=== PATIENT | female | born 1965 | race Caucasian/White ===

== ENCOUNTER 2018-10-26 19:32 | Inpatient (IN) | payer MEDICAID ==
[~2018-10-26] VITALS: Ht 170.2 cm; Wt 62.1 kg
--- NOTE | 2018-10-26 19:32 | NUR ---
PT MIGUE BLS. TAKEN TO BED 3
[2018-10-26 19:36] VITALS: BP 113/71
--- NOTE | 2018-10-26 19:45 | NUR ---
MIGUE FROM FIELD. PER PD, PT WAS WANDERING THROUGH SOMEONE'S BACKYARD, RESIDENTS CALLED 911. PT WAS LATER FOUND LYING DOWN OUTSIDE OF BUDDHIST. PT NOT VERBALLY RESPONDING TO PD, EMS CALLED. PT ARRIVES AWAKE WITH EYES CLOSED SHUT. PT RESPONDS TO STIMULI. PT AMBULATED TO BED WITH ASSIST. UNCOOPERATIVE. REFUSING TO SPEAK TO STAFF OR ANSWER QUESTIONS. NO MEDICAL HX OBTAINED. NO OBVIOUS SIGNS OF TRAUMA/INJURY NOTED. VSS; PATIENT POSITIONED FOR COMFORT; HOB ELEVATED; BEDRAILS UP X2; BED DOWN. ER MD MADE AWARE OF PT STATUS.
[2018-10-26] MEDS ORDERED: NACL 0.9% 1,000 ML IV ONE (19:50)
--- NOTE | 2018-10-26 20:17 | NUR ---
Dr. Cheema examining patient.
[2018-10-26 20:40] LABS: BASOPHILS % (AUTO) 0.3 % (0.0-2.0); EOSINOPHILS # (AUTO) 0.5 K/uL (0-0.4); EOSINOPHILS % (AUTO) 6.8 % (0.0-4.0); HEMATOCRIT 37.5 % (36-48); HEMOGLOBIN 12.7 g/dL (12.0-16.0); LYMPHOCYTES # (AUTO) 2.8 K/uL (2.5-16.5); LYMPHOCYTES % (AUTO) 36.9 % (20.5-51.1); MEAN CORPUSCULAR HEMOGLOBIN 31 pg (27-31); MEAN CORPUSCULAR HGB CONC 34 g/dL (33-37); MEAN CORPUSCULAR VOLUME 90.8 fL (80-94); MONOCYTES # (AUTO) 0.6 K/uL (0.8-1.0); MONOCYTES % (AUTO) 8.3 % (1.7-9.3); NEUTROPHILS # (AUTO) 3.6 K/uL (1.8-7.7); NEUTROPHILS % (AUTO) 47.7 % (42.2-75.2); PLATELET COUNT (AUTO) 332 K/uL (140-450); RED BLOOD CELL COUNT(AUTO) 4.13 MIL/uL (4.20-5.40); RED CELL DISTRIBUTION WIDTH 12.5 % (11.6-13.7); WHITE BLOOD COUNT (AUTO) 7.5 K/uL (4.8-10.8)
[2018-10-26] MEDS ORDERED: LEVOFLOXACIN 500 MG/D5W PREMIX 100 ML IV ONE (21:00)
[2018-10-26 21:11] LABS: CARBON DIOXIDE 29.5 mmol/L (21-32); CHLORIDE 105 mmol/L (98-107); CREATININE 0.8 mg/dL (0.6-1.3); GFR ARICAN-AMERICAN 98 mL/min (>90); GLUCOSE 96 mg/dL (74-106); POTASSIUM 3.5 mmol/L (3.5-5.1); SODIUM SERUM 143 mmol/L (136-145); UREA NITROGEN, BLOOD 12 mg/dL (7-18)
[2018-10-26 21:17] LABS: ACETAMINOPHEN < 0.5 ug/ml (10-30); ALBUMIN 3.9 g/dL (3.4-5.0); ASPARTATE AMINOTRANSFERASE 12 U/L (15-37); SALICYLATE < 2.8 mg/dL (2.8-20.0); TOTAL BILIRUBIN 0.7 mg/dL (0.0-1.0)
--- NOTE | 2018-10-26 21:20 | NUR ---
REPORT GIVEN TO GERARD VINCENT.
[2018-10-26 22:35] LABS: BARBITURATE, URINE NEG. ng/ml (NEG <=200); BENZODIAZEPINE, URINE NEG. ng/mL (NEG <=200); CANNABINOID, URINE NEG. ng/mL (NEG <=50); COCAINE, URINE NEG. ng/mL (NEG <=300); OPIATE, URINE NEG. ng/mL (NEG <=2000); PHENCYCLIDINE SCREEN,URINE NEG. ng/mL (NEG <=25)
[2018-10-26] MEDS ORDERED: KETOROLAC 30 MG/ML VIAL IVP ONE (22:40)
--- NOTE | 2018-10-26 23:14 | NUR ---
PT TAKEN TO CT
--- NOTE | 2018-10-26 23:33 | NUR ---
PT RETURN FROM CT
--- NOTE | 2018-10-27 00:18 | NUR ---
COVERING PRIMARY RN FOR LUNCH RELIEF. ASSUMED TEMPORARY CARE OF PT.
--- NOTE | 2018-10-27 00:40 | NUR ---
TRANSFER OF CARE BACK TO GERARD VINCENT.
[2018-10-27] MEDS ORDERED: ACETAMINOPHEN 325 MG TAB PO PRN (01:00)
[2018-10-27] MEDS ORDERED: ONDANSETRON 4 MG/2 ML VIAL IM/IVP PRN (01:00)
[2018-10-27] MEDS ORDERED: LORazepam 2 MG/ML VIAL IM/IVP PRN (01:00)
[2018-10-27] MEDS ORDERED: DOCUSATE SODIUM 100 MG GELCAP PO PRN (01:00)
--- NOTE | 2018-10-27 01:00 | NUR ---
Patient will be admitted to care of mandel. Admited to [facility]. Will go to room 121b Belongings list completed. Report to YAYA
--- NOTE | 2018-10-27 01:00 | NUR ---
RECEIVED REPORT FROM COLD WORKING SUPERVISORGERARD VINCENT. NO DISTRESS. NO SOB. ROOM AIR. A/O X0. UNABLE TO ASSESS. DISCUSSED PLAN OF CARE. REINFORCEMENT NEEDED. ABLE TO OPEN EYES. BUT NOT REPLYING TO QUESTIONS. VITALS WNL. R AC 20G. PATENT AND INTACT. SKIN INTACT. INCONTINENT. STANDARD PREC IN PLACE. NOT ABLE TO WALK DUE TO CONDITION. FALL RISK PROTOCOL IN PLACE. BED IN LOWEST POSITION. CALL LIGHT WITHIN REACH. WILL CONTINUE TO MONITOR.
[2018-10-27 01:20] LABS: APPEARANCE,URINE CLOUDY (CLEAR); BILIRUBIN,URINE NEGATIVE (NEGATIVE); BLOOD, URINE NEGATIVE (NEGATIVE); COLOR,URINE YELLOW (YELLOW); LEUKOCYTE ESTERASE ,URINE 3+ (NEGATIVE); NITRITE, URINE POSITIVE (NEGATIVE); PH,URINE >=9.0 (5.0-9.0); UGLUCOSE NEGATIVE (NEGATIVE)
[2018-10-27] MEDS: NACL 0.9% 1,000 ML IV SCH ×3 (02:02→21:45)
--- NOTE | 2018-10-27 02:02 | NUR ---
ATTEMPTED TO COLLECT MRSA SWAB. DID NOT ALLOW ME TO. PT UNCOOPERATIVE. MOVING MY HANDS AWAY BUT NOT SPEAKING. NO SIGNS OF DISTRESS. WILL CONTINUE TO MONITOR AND TRY TO COLLECT LATER.
--- NOTE | 2018-10-27 02:04 | NUR ---
PT KEEPS BENDING ARM. INSTRUCTED PT TO KEEP ARM STRAIGHT. BUT PT KEEPS BENDING ARM. NOT COOPERATING. REINFORCEMENT NEEDED.
[2018-10-27 02:17] LABS: CHOL/HDL RATIO 2.6 (1-4.5); FREE T4 (FREE THYROXINE) 1.11 ng/dL (0.76-1.46); THYROID STIMULATING HORMONE 4.29 uIU/mL (0.34-3.74)
[2018-10-27 03:53] LABS: RBC,URINE 0-5 /HPF (0-5); WBC,URINE TOO MANY TO COUNT /HPF (0-5)
[2018-10-27 03:54] LABS: TRIPLE PHOSPHATE CRYSTAL,UR >100 /HPF (None Seen)
--- NOTE | 2018-10-27 04:00 | NUR ---
PT SLEEPING IN BED. EASILY AROUSABLE. EVEN CHEST RISE. NO SIGNS OF DISTRESS. WILL CONTINUE TO MONITOR.
--- NOTE | 2018-10-27 06:00 | NUR ---
PT SLEEPING. NO SIGNS OF DISTRESS. ON ROOM AIR. WILL CONTINUE TO MONITOR.
--- NOTE | 2018-10-27 07:29 | NUR ---
ENDORSED PT TO RAH ROGER. PT IS IN STABLE CONDITION.
--- NOTE | 2018-10-27 07:30 | NUR ---
RECEIVED BEDSIDE REPORT FROM CARDIAC EXERCISE SPECIALIST NURSE YAYA. PT IS ASLEEP, NO S/S OF ANY ACUTE DISTRESS NOTED. PT HAS AN IV IN HER R AC 20 G CURRENTLY SALINE LOCKED BECAUSE PT'S ARM IS BENT. PT IS REFUSING TO KEEP ARM STRAIGHT. PT ON ROOM AIR, SKIN INTACT. FALL PRECAUTIONS IN PLACE. WILL CONTINUE TO MONITOR.
[2018-10-27 08:00] VITALS: BP 145/70
--- NOTE | 2018-10-27 08:10 | NUR ---
PT WAS NONCOMPLIANT WITH HAVING A CHEST XRAY. PT ALSO DID NOT COMPLY WITH COLLECTION OF NASAL MRSA SWAB. WILL NOTIFY .
--- NOTE | 2018-10-27 08:43 | NUR ---
PATIENT HAS BEEN SCREENED AND CATEGORIZED MODERATE NUTRITION RISK. PATIENT WILL BE SEEN WITHIN 3-5 DAYS OF ADMISSION. 10/29/18BONIFACIO ESQUIVEL RD
[2018-10-27] MEDS: LACTOBACILLUS RHAMNOSUS GG 1 EACH CAP PO SCH ×2 (09:00→21:00)
--- NOTE | 2018-10-27 09:02 | NUR ---
PT'S IV FOUND TO BE OUT OF HER VEIN. WILL ATTEMPT TO INSERT A NEW ONE.
--- NOTE | 2018-10-27 09:58 | NUR ---
PT'S LINENS CHANGED. PT CONTINUES TO SLEEP.
--- NOTE | 2018-10-27 10:15 | NUR ---
NEW IV INSERTED L HAND 22 G.
--- NOTE | 2018-10-27 10:42 | NUR ---
SW attempted to conduct assessment with patient. Patient did not respond to verbal cues. SW spoke to patient's nurse, who stated that patient does not communicate with staff and that patient has no means of identification. SW attempted to receive attention of patient, but patient did not respond. SW will follow up as needed.
--- NOTE | 2018-10-27 11:25 | NUR ---
PT PULLED OUT HER IV. WILL ATTEMPT TO INSERT A NEW IV
[2018-10-27 12:22] LABS: PROTHROMBIN TIME 10.7 secs (10.8-13.4)
[2018-10-27 12:27] LABS: ANION GAP 14.2 (8-16); CREATININE 0.7 mg/dL (0.6-1.3); POTASSIUM 4.2 mmol/L (3.5-5.1)
--- NOTE | 2018-10-27 13:10 | NUR ---
ATTEMPTED TO START A NEW IV, PT BECAME AGGRESSIVE, GRABBING AND PULLING RN'S ARMS. NOTIFIED. DR BOYCE SAYS TO LET PT SLEEP FOR NOW, AND DON'T ATTEMPT TO INSERT AN IV ON HER, IT POSES A SAFETY RISK.
[2018-10-27 16:00] VITALS: BP 151/65
--- NOTE | 2018-10-27 16:00 | NUR ---
PT NOT LETTING RN TO TAKE BP ON THE ARM OR TO CHECK O2 SAT ON A FINGER, GRABBING ONTO EQUIPMENT. CHECKED BP AND O2 ON THE LOWER EXTREMITY. VS ARE STABLE TO BASELINE.
--- NOTE | 2018-10-27 16:29 | NUR ---
PT'S LINENS CHANGED. PT IS NOTED TO BE INCONTINENT. WHENEVER STAFF IS TRYING TO COMMUNICATE WITH THE PT OR ASK HER A QUESTION, THE PT DOES NOT RESPOND THOUGH SHE DOES NOT HEAR THEM. PT IS CALMLY SLEEPING AT BASELINE, HOWEVER, CAN BECOME PHYSICALLY AGGRESSIVE WHEN BEING MOVED, CLEANED, OR DURING VITAL SIGNS.
--- NOTE | 2018-10-27 18:31 | NUR ---
ATTEMPTED TO COLLECT A MRSA NARES SWAB AGAIN, PT NONCOMPLIANT, COVERING HER FACE WITH A BLANKET AND PUSHING RN'S HANDS AWAY.
--- NOTE | 2018-10-27 19:30 | NUR ---
PT ENDORSED TO COOK BOX FILLER IN STABLE CONDITION.
--- NOTE | 2018-10-27 19:31 | NUR ---
RECEIVED BESIDE REPORT FROM RAH ROGER. PT A/O X0. ALOC. NON COMMUNICATIVE. DISCUSSED PLAN OF CARE. REINFORCEMENT NEEDED. ROOM AIR. NO SIGNS OF DISTRESS. SKIN INTACT. NO IV SITE. STD PRECAUTIONS. FALL RISK PROTOCAL IN PLACE. BED IN LOWEST POSITION. CALL LIGHT WITHIN REACH. WILL CONTINUE TO MONITOR.
--- NOTE | 2018-10-27 21:00 | NUR ---
REFUSED SCHEDULED MEDICATIONS. PULLS AWAY. EDUCATED ON RISKS AND BENEFITS. UNCOMMUNICATIVE. REINFORCEMENT NEEDED. WILL CONTINUE TO MONITOR.
--- NOTE | 2018-10-27 22:00 | NUR ---
ATTEMPTED TO GET MRSA SWAB. PT REFUSED. MOVES MY HANDS AWAY. PT REFUSED VITALS. UNCOOPERATIVE. CONTINUES MOVING MY HANDS OUT OF THE WAY AND COVERS HER BODY AND HEAD UNDERNEATH THE BLANKET. DOESN'T RESPOND, UNCOMMUNICATIVE. BUT SHOWS NO SIGNS OF DISTRESS. WILL CONTINUE TO MONITOR.
[2018-10-27] MEDS ORDERED: LEVOFLOXACIN 500 MG/D5W PREMIX 100 ML IV SCH (22:30)
--- NOTE | 2018-10-28 00:06 | NUR ---
PT IS SLEEPING IN BED. THI CARE WAS PERFORMED. LINEN CHANGE. TOLERATED WELL. NO COMPLAINTS. DENIES PAIN. WILL CONTINUE TO MONITOR.
--- NOTE | 2018-10-28 02:46 | NUR ---
SLEEPING IN BED. UNLABORED BREATHING. NO SIGNS OF DISTRESS. CALL LIGHT WITHIN REACH. WILL CONTINUE TO MONITOR.
--- NOTE | 2018-10-28 04:30 | NUR ---
ASSISTED WITH THI CARE AND LINEN CHANGE. WITH ASSIST OF DEPARTMENT STORE SALESPERSON. TOLERATED WELL. NO SIGNS OF DISTRESS. WILL CONTINUE TO MONITOR.
--- NOTE | 2018-10-28 06:46 | NUR ---
WILL ENDORSE PT TO DAYSHIFT RN. PT IN STABLE CONDITION. RESTING IN BED. NO SIGNS OF DISTRESS. UNLABORED BREATHING. NO SOB. DENIES PAIN. BED IN LOWEST POSITION. CALL LIGHT WITHIN REACH.
--- NOTE | 2018-10-28 07:10 | NUR ---
RECEIVED BED SIDE REPORT FROM COMMUNITY EDUCATION SPECIALIST RN. PT SLEEPING, IGNORES WHEN CALLING NAME. REFUSED VITAL SIGNS. PT COVERED BODY WITH BLANKET AND TURNED AWAY. PT APPEARS IN NO RESP DISTRESS ON RA AND IN NO PAIN. PT IS NPO EXCEPT MEDS. CALL LIGHT WITHIN REACH. WILL CONTINUE TO MONITOR
[2018-10-28] MEDS: NACL 0.9% 1,000 ML IV SCH ×2 (07:45→17:21)
--- NOTE | 2018-10-28 08:42 | NUR ---
PT REFUSED AM MEDS. EDUCATED ON THE IMPORTANCE OF TAKING MEDS, PT STILL IGNORING ME. WILL CONTINUE TO MONITOR.
[2018-10-28] MEDS: LACTOBACILLUS RHAMNOSUS GG 1 EACH CAP PO SCH ×3 (08:43→21:43)
[2018-10-28] MEDS: cefTRIAXone 1,000 MG in LIDOCAINE MPF 1% - 5 mL VIAL 2.1 ML IM SCH (08:43)
--- NOTE | 2018-10-28 08:44 | NUR ---
PT ALSO HAS NO IV ACCESS. PT REFUSES TO HAVE IV IN. IV ABX DUE. WILL CONTINUE TO MONITOR
[2018-10-28] MEDS: LORazepam 2 MG/ML VIAL IVP SCH ×2 (13:00→17:00)
--- NOTE | 2018-10-28 18:25 | NUR ---
PT STILL SLEEPING. RR 18, NON-LABORED AND SYMMETRICAL. IN NO DISTRESS, WILL CONTINUE TO MONITOR
--- NOTE | 2018-10-28 18:54 | NUR ---
WILL ENDORSE PT TO SYSTEM SPECIALIST RN. PT STABLE
--- NOTE | 2018-10-28 19:30 | NUR ---
RECEIVED FROM AM RN IN BED WITH WHOLE BODY COVERED WITH BLANKET. PRIED OPEN BLANKET FROM FACE GENTLY AND ASKED HER HOW IS SHE. PT. JUST LOOKED AT ME AND PUT BACK THE BLANKET TO COVER HER FACE AGAIN. PREFERS TO SLEEP AND BE UNDER BLANKET. NONE VERBAL AT THIS TIME. BED ALARM ON.
--- NOTE | 2018-10-28 21:57 | NUR ---
ATTEMPTED TO ADMINISTER HEPARIN SQ BUT SUDDENLY PUSHED MY HAND AWAY . REFUSED MEDICATIONS. GAVE ORANGE JUICE AND SHE ACCEPTED BUT NOT MEDICATIONS. HEPARIN SQ MEDICATION DISCARDED WITNESSED BY CHARGE NURSE.
--- NOTE | 2018-10-29 00:09 | NUR ---
SLEEPING AT THIS TIME. NO RESTLESSNESS. BED ALARM ON.
[2018-10-29 00:50] VITALS: BP 128/73
--- NOTE | 2018-10-29 00:53 | NUR ---
PT. PERSONAL HYGIENE RENDERED. HAD 1 BM AND WET WITH URINE BEDDING . CHANGED AND KEPT CLEAN. PT. REFUSED TO BE HELD IN HER HAND . ABLE TO GET VITAL SIGN ONLY TO RIGHT FOOT ANKLE PART. PT. COMBATIVE WITH CARE.
[2018-10-29] MEDS: NACL 0.9% 1,000 ML IV SCH ×3 (03:45→23:45)
--- NOTE | 2018-10-29 06:15 | NUR ---
SLEPT WELL THIS SHIFT. LAST AM PERSONAL HYGIENE DONE. KEPT CLEAN AND DRY. COMBATIVE TO CARE. PT. REFUSING TO OPEN EYES AT TIMES . NEEDS ANTICIPATED AND MET.
[2018-10-29 06:39] LABS: CREATININE 0.7 mg/dL (0.6-1.3)
[2018-10-29 06:44] LABS: CARBON DIOXIDE 24.3 mmol/L (21-32); POTASSIUM 3.6 mmol/L (3.5-5.1)
[2018-10-29 06:46] LABS: MAGNESIUM 1.8 mg/dL (1.8-2.4); PHOSPHORUS 3.7 mg/dL (2.5-4.9)
[2018-10-29 06:50] LABS: BASOPHILS % (AUTO) 0.4 % (0.0-2.0); EOSINOPHILS # (AUTO) 0.2 K/uL (0-0.4); EOSINOPHILS % (AUTO) 3.3 % (0.0-4.0); HEMATOCRIT 41.6 % (36-48); LYMPHOCYTES # (AUTO) 2.4 K/uL (2.5-16.5); LYMPHOCYTES % (AUTO) 35.7 % (20.5-51.1); MEAN CORPUSCULAR HEMOGLOBIN 31 pg (27-31); MEAN CORPUSCULAR HGB CONC 34 g/dL (33-37); MEAN CORPUSCULAR VOLUME 90.8 fL (80-94); MONOCYTES # (AUTO) 0.6 K/uL (0.8-1.0); MONOCYTES % (AUTO) 8.3 % (1.7-9.3); NEUTROPHILS # (AUTO) 3.5 K/uL (1.8-7.7); NEUTROPHILS % (AUTO) 52.3 % (42.2-75.2); PLATELET COUNT (AUTO) 355 K/uL (140-450); RED BLOOD CELL COUNT(AUTO) 4.59 MIL/uL (4.20-5.40); RED CELL DISTRIBUTION WIDTH 12.5 % (11.6-13.7); WHITE BLOOD COUNT (AUTO) 6.7 K/uL (4.8-10.8)
[2018-10-29 06:52] LABS: ANION GAP 17.3 (8-16)
--- NOTE | 2018-10-29 07:15 | NUR ---
RECEIVED REPORT FROM CONTINUING EDUCATION INSTRUCTOR NURSE. PT SLEEPING. PT APHASIC OR WON'T TALK. SKIN INTACT. NO IV ACCESS. WILL CONTINUE TO MONITOR PT.
[2018-10-29] MEDS: LORazepam 2 MG/ML VIAL IVP SCH (09:00)
[2018-10-29] MEDS: LACTOBACILLUS RHAMNOSUS GG 1 EACH CAP PO SCH ×2 (09:00→21:00)
--- NOTE | 2018-10-29 10:21 | NUR ---
SW attempted to conduct assessment. Patient refused to communicate with SW. SW will follow up.
[2018-10-29] MEDS: cefTRIAXone 1,000 MG in LIDOCAINE MPF 1% - 5 mL VIAL 2.1 ML IM SCH (10:54)
--- NOTE | 2018-10-29 11:02 | NUR ---
ADMINISTERED INJ x3 W/ ASSISTANCE OF 3 OTHER PERSONS. PT WAS COMBATIVE BUT WAS ABLE TO ADMINISTER. NO BLEEDING NOTED. WILL CONTINUE TO MONITOR PT.
[2018-10-29] MEDS ORDERED: LORazepam 2 MG/ML VIAL IM/IVP PRN (11:20)
--- NOTE | 2018-10-29 19:10 | NUR ---
ENDORSED PT TO THE MARKETING ANALYST AT BEDSIDE FOR CONTINUITY OF CARE. PT IS IN STABLE CONDITION.
--- NOTE | 2018-10-29 19:10 | NUR ---
RECIEVED PT AWAKE BUT APHASIC , NID RESP EVEN AND UNLABORED , NO IVF , REFUSED MEDICATION , TENDS TO BE COMBATIVE AM SHIFT NURSE REPORTED , PLAN OF CARE DISCUSSED BUT NO RESPONSE - POOR UNDERSTANDING , WILL MONITOR.
[2018-10-29 20:00] VITALS: BP 90/60
--- NOTE | 2018-10-29 22:00 | NUR ---
MADE ROUNDS , PT SLEEPING.
--- NOTE | 2018-10-30 | NUR ---
MADE ROUNDS , RESP. EVEN AND UNLABORED , FULLY SOAKED WITH URINE BUT REFUSED CHANGE THE LINEN AND DIAPER , BED SHEET SOILED WITH STOOL BUT REFUSED TO CHANGE IT. WILL CONT TO MONITOR.
--- NOTE | 2018-10-30 04:00 | NUR ---
MADE ROUNDS , RESP. EVEN AND UNLABORED , WILL CONT. TO MONITOR. CALL LIGHT WITHIN REACH
--- NOTE | 2018-10-30 06:00 | NUR ---
MADE ROUNDS PT . SLEEPING .AWAKEABLE O2 SAT 96%
--- NOTE | 2018-10-30 07:55 | NUR ---
ENDORSED TO AM SHIFT FOR CONT. OF CARE PT REFUSED IV INSERTION AND ALL MEDICATION., CALL LIGHT WITHIN REACH
--- NOTE | 2018-10-30 07:55 | NUR ---
RECEIVED HAND OFF REPORT FROM PM RN ALL SAFETY MEASURES ARE IN PLACE. PT REFUSED MORNING VITALS. PM RN INFORMED ME THAT PT HAS BEEN REFUSING ALL MEDICATIONS, FOOD, AND IV INSERTION. WILL CONTINUE TO MONITOR.
[2018-10-30 08:00] VITALS: BP 109/69
[2018-10-30] MEDS: LACTOBACILLUS RHAMNOSUS GG 1 EACH CAP PO SCH ×2 (09:00→21:00)
[2018-10-30] MEDS: NACL 0.9% 1,000 ML IV SCH ×2 (09:45→19:45)
--- NOTE | 2018-10-30 10:02 | NUR ---
CALLED PHARMACY FOR IM ANTIBIOTIC MEDICATION
[2018-10-30] MEDS: cefTRIAXone 1,000 MG in LIDOCAINE MPF 1% - 5 mL VIAL 2.1 ML IM SCH (10:30)
--- NOTE | 2018-10-30 10:39 | NUR ---
ADMINISTERED IM MEDICATION SECURITY WAS PRESENT INCASE PATIENT BECAME COMBATIVE. ALL SAFETY MEASURES ARE IN PLACE. PT REFUSED ALL OTHER MEDICATIONS. WILL CONTINUE TO MONITOR.
--- NOTE | 2018-10-30 13:05 | NUR ---
PT TOOK SHOWER ASSISTED BY HEALTH SCIENCE INSTRUCTOR. PT BACK IN BED PT APPEARS STABLE AND IN NO APPARENT DISTRESS. PT IS REFUSING TO TALK, EAT OR TAKE MEDICATIONS., WILL CONTINUE TO MONITOR SPOKE WITH FITNESS MANAGER UNSAFE TO DISCHARGE PATIENT AT THIS TIME PT IS [place]
--- NOTE | 2018-10-30 13:40 | NUR ---
10/30/18 RD INITIAL ASSESSMENT COMPLETED PLEASE REFER TO NUTRITION ASSESSMENT UNDER CARE ACTIVITY FOR ESTIMATED NUTRITIONAL NEEDS. 1. CONTINUE PUREE DIET TOLERATED 2. IF PATIENT TOLERATES PUREE, RECOMMEND SWALLOW EVALUATION FOR PATIENT 3. RD TO FOLLOW-UP 5-7 DAYS, LOW RISK BONIFACIO ESQUIVEL, RD
--- NOTE | 2018-10-30 15:25 | NUR ---
FREQUENT ROUNDING ON PT PT APPEARS STABLE AND IN NO APPARENT DISTRESS. ALL SAFETY MEASURES ARE IN PLACE WILL CONTINUE TO MONITOR.
--- NOTE | 2018-10-30 16:00 | NUR ---
ATTEMPTED TO TAKE VITAL SIGNS PT REFUSED.
--- NOTE | 2018-10-30 17:02 | NUR ---
Azar HER called to come in to finger print the patient for identity revealing. Per the police department, they do not do finger print because patient is not on the list for criminal or on hold.
--- NOTE | 2018-10-30 19:29 | NUR ---
REPORT RECEIVED AT BEDSIDE FROM ADELINE GEE DAYSHIFT NURSE FOR CONTINUITY OF CARE, PT IN STABLE CONDITION. PT IS SLEEPING IN BED.
--- NOTE | 2018-10-30 19:39 | NUR ---
ENDORSED PT TO PM RN PT APPEARS STABLE AND IN NO APPARENT DISTRESS.
--- NOTE | 2018-10-30 20:00 | NUR ---
PT SLEEPING, PT AROUSABLE BUT REFUSES TO ACKNOWLEDGE STAFF. WILL RETURN LATER TO TRY AND GET V/S AND MEDICATION TP PT.
[2018-10-30] MEDS: OLANZapine 5 MG TAB PO SCH (21:00)
--- NOTE | 2018-10-30 21:00 | NUR ---
PT IN BED WITH EYES CLOSED. PT AROUSABLE BUT REFUSED TO ACKNOWLEDGE STAFF. T 97.7 P 80 R 20. PT PULLED OFF B/P CUFF AND REFUSED TO LEFT STAFF TAKE B/P. PT REFUSED TO ACKNOWLEDGE STAFF PM MEDICATION RETURNED.
--- NOTE | 2018-10-30 23:11 | NUR ---
PT IN BED SLEEPING NO S/S OF PAIN OR DISTRESS NOTED.
--- NOTE | 2018-10-31 00:58 | NUR ---
PT TEMP 97.4, PT REFUSED ALL OTHER VITAL SIGNS. PT IN BED NO S/S OF PAIN OR DISTRESS NOTED.
[2018-10-31] MEDS: NACL 0.9% 1,000 ML IV SCH ×2 (05:45→15:45)
--- NOTE | 2018-10-31 06:25 | NUR ---
PT IN BED AWAKE, SHE AGAIN REFUSED V/S. SITTER AT BEDSIDE, WILL ENDORSE POC TO AM SHIFT. Addendum: 10/31/18 at 0706 by Geraldine Hancock RN WRONG PT
--- NOTE | 2018-10-31 06:30 | NUR ---
PT IN BED SLEEPING. PT REFUSES TO ACKNOWLEDGE STAFF. PT HAS BEEN SLEEPING ALL NIGHT. SHE DID REFUSE ALL VITALS MEDS AND CARE.
--- NOTE | 2018-10-31 06:45 | NUR ---
WILL ENDORSE POC TO AM SHIFT.
--- NOTE | 2018-10-31 07:15 | NUR ---
RECEIVED HAND OFF REPORT FROM PM RN PT IS ASLEEP IN BED ALL SAFETY MEASURES ARE IN PLACE
[2018-10-31] MEDS: LACTOBACILLUS RHAMNOSUS GG 1 EACH CAP PO SCH ×2 (09:00→20:59)
[2018-10-31] MEDS: OLANZapine 5 MG TAB PO SCH (09:00)
--- NOTE | 2018-10-31 09:25 | NUR ---
PT AWAKE IN BED EATING BREAKFAST. 100% BREAKFAST EATEN. ASKED IF PATIENT IS FEELING BETTER PATIENT STATED "YES". TRIED TO ASK PATIENT OTHER INFORMATION. PT DID NOT SPEAK
[2018-10-31] MEDS: cefTRIAXone 1,000 MG in LIDOCAINE MPF 1% - 5 mL VIAL 2.1 ML IM SCH (10:26)
--- NOTE | 2018-10-31 11:45 | NUR ---
DR. MENDOZA AT BEDSIDE. INFORMED HIM OF PATIENT EATING BREAKFAST AND SPEAKING.
[2018-10-31] MEDS ORDERED: LORazepam 2 MG/ML VIAL IM SCH ×3 (12:00→21:00)
--- NOTE | 2018-10-31 12:35 | NUR ---
ATIVAN ADMINISTERED PER DR. MENDOZA ORDER. PT AWAKE IN BED EATING LUNCH. WILL CONTINUE TO MONITOR.
--- NOTE | 2018-10-31 14:18 | NUR ---
FREQUENT ROUNDING ON PT PT APPEARS STABLE AND IN NO APPARENT DISTRESS. ALL SAFETY MEASURES ARE IN PLACE WILL CONTINUE TO MONITOR.
--- NOTE | 2018-10-31 15:45 | NUR ---
UNABLE TO ADMINISTER IVF. NEED HELP STARTING IV. WHEN I GET AN IV STARTED I WILL START THE IVF ORDERED BY DR. MENDOZA
--- NOTE | 2018-10-31 16:01 | NUR ---
Boathouse Keeper Note: I met with patient at bedside. Patient appeared to be sleeping. When I introduced myself to patient, she opened her eyes, kept them opened for a few minutes and then closed them again. I explained to her I wanted to assist her with her discharge plan and address any possible needs she might have. However, patient remained silent and with eyes closed. Patient appeared to be awake but with eyes closed. Per EMILIANA Clarke, when she was assisting patient with showering yesterday 10/30/18 patient spoke and stated water was too hot and wanted it to be colder. Boathouse Keeper and/or Swat Team Member will continue to follow up.
[2018-10-31 16:35] VITALS: BP 110/71
[2018-10-31] MEDS: LORazepam 2 MG/ML VIAL IM SCH (18:00)
--- NOTE | 2018-10-31 18:00 | NUR ---
ATIVAN ADMINISTERED PER SCHEDULED MEDICATION. PT AWAKE IN BED EATING DINNER. WILL CONTINUE TO MONITOR,
--- NOTE | 2018-10-31 18:29 | NUR ---
ATIVAN REASSESSMENT. PT AWAKE IN BED, PT REFUSING TO SPEAK WITH MEDICAL STAFF WILL CONTINUE TO MONITOR.
--- NOTE | 2018-10-31 19:23 | NUR ---
ENDORSED PT TO PM RN PT AWAKE IN BED, PT APPEARS STABLE AND IN NO APPARENT DISTRESS. ALL SAFETY MEASURES ARE IN PLACE. ENDORSED IV PLACEMENT. UNABLE TO PLACE IV ON PT
--- NOTE | 2018-10-31 19:26 | NUR ---
RECEIVED ENDORSEMENT FORM ADELINE GEE DAYSHIFT NURSE AT BEDSIDE FOR CONTINUITY OF CARE, PT IN STABLE.
--- NOTE | 2018-10-31 21:09 | NUR ---
PT IN BED RESTING WITH EYES CLOSED, BUT AROUSABLE TO TOUCH AND NAME. PT DID ALLOW STAFF TO INSERT A 24G IV ON RIGHT F/A. PT ASKED WHY IS SHE GETTING AN IV ? IT WAS EXPLAINED TO PT THAT SHE IS DEHYDRATED AND THE DOCTOR ORDERED FLUIDS TO HELP HYDRATE YOU. PT VERBALIZED ACKNOWLEDGMENT, IV SITE INSERTED X1 ATTEMPT NO COMBATIVE BEHAVIORS NOTED. PT ALERT AND COOPERATIVE. PT ALSO TOOK HER ORDERED PM MEDICATION OF CULTURELLE AND HEPARIN SHOT FOR DVT PREVENTION. PT WAS ASKED IF THERE WAS SOMEONE WE COULD CONTACT FOR HER AND PT DIDN'T ANSWER. PT DID SAY LATER THAT SHE LIKES BEING IN A BED BUT SHE FEELS SHE WOULD BE LONELY IN AN APARTMENT. PT SAID THAT SHE HAD BEEN LIVING ON THE [address] NEXT TO A [place] IN [place], SHE SAID SHE HAD SOME FRIENDS IN THE [place] BUT SHE DID NOT NAME AN EMERGENCY CONTACT. PT SAID SHE HAD DONE SOME DECORATING INTERIOR AND OF THE EXTERIOR OF THE HOME SHE HAD SHARED WITH HER BUT OFFERED NO MORE DETAILS, PT ALSO HAS MUCH IMPROVED APPETITE SHE FINISHED HER SUPPLEMENT SHAKE AND WAS ASKED IF SHE WANTED MORE SHE SAID YES.
[2018-11-01 00:29] VITALS: BP 101/52
--- NOTE | 2018-11-01 00:35 | NUR ---
PT IN BED SLEEPING NO S/S OF PAIN OR DISTRESS NOTED, IV SITE 24G ON RIGHT F/A INTACT AND RUNNING N/S ORDERED AT 100MLS/HR. V/S FOLLOWS T 97.2 P 74 R 18 B/P 101/52 02 96% ON ROOM AIR. ALL FALLS PRECAUTIONS IN PLACE.
[2018-11-01] MEDS: NACL 0.9% 1,000 ML IV SCH ×3 (06:07→21:45)
--- NOTE | 2018-11-01 06:07 | NUR ---
PT IN BED NO S/S OF PAIN OR DISTRESS NOTED. IV SITE ON RIGHT F/A INTACT AND RUNNING NS AT 100MLS/HR. FLUID BG REPLACE. PT SLEEPING IN LOW BED ALL FALLS PRECAUTIONS IN PLACE.
--- NOTE | 2018-11-01 07:25 | NUR ---
RECEIVED HAND OFF REPORT FROM ANIMAL GROOMER NURSE PT IS AWAKE IN BED IV SITE IS PATENT AND IN NO APPARENT DISTRESS. ALL SAFETY MEASURES ARE IN PLACE WILL CONTINUE TO MONITOR.
[2018-11-01 08:08] LABS: BASOPHILS % (AUTO) 0.7 % (0.0-2.0); EOSINOPHILS # (AUTO) 0.2 K/uL (0-0.4); EOSINOPHILS % (AUTO) 3.2 % (0.0-4.0); HEMATOCRIT 37.8 % (36-48); HEMOGLOBIN 12.9 g/dL (12.0-16.0); LYMPHOCYTES # (AUTO) 2.4 K/uL (2.5-16.5); LYMPHOCYTES % (AUTO) 33.3 % (20.5-51.1); MEAN CORPUSCULAR HEMOGLOBIN 31 pg (27-31); MEAN CORPUSCULAR HGB CONC 34 g/dL (33-37); MEAN CORPUSCULAR VOLUME 89.9 fL (80-94); MONOCYTES # (AUTO) 0.5 K/uL (0.8-1.0); MONOCYTES % (AUTO) 7.3 % (1.7-9.3); NEUTROPHILS % (AUTO) 55.5 % (42.2-75.2); PLATELET COUNT (AUTO) 324 K/uL (140-450); RED CELL DISTRIBUTION WIDTH 12.6 % (11.6-13.7); WHITE BLOOD COUNT (AUTO) 7.1 K/uL (4.8-10.8)
--- NOTE | 2018-11-01 08:14 | NUR ---
PT AWAKE IN BED PT SPEAKING TO RN STUDENT STATED SHE WANTS TO SPEAK TO HER MELINDA [phone]. SPOKE TO THE PERSON ON THE PHONE HE STATED HIS NAME WAS TUSHAR AND THAT HE DID NOT KNOW ANYONE IN [place]
[2018-11-01 08:25] VITALS: BP 110/62
[2018-11-01] MEDS: LACTOBACILLUS RHAMNOSUS GG 1 EACH CAP PO SCH ×2 (10:42→20:53)
[2018-11-01] MEDS: LORazepam 2 MG/ML VIAL IM SCH ×3 (10:42→17:46)
--- NOTE | 2018-11-01 10:51 | NUR ---
PT REFUSED HEPARIN, WAS ABLE TO ADMINISTER THE ATIVAN IV PUSH. PT NOW STATING HER NAME IS HAYDEN
[2018-11-01 11:11] LABS: ANION GAP 13.7 (8-16); CARBON DIOXIDE 27.2 mmol/L (21-32); CREATININE 0.6 mg/dL (0.6-1.3); POTASSIUM 3.9 mmol/L (3.5-5.1)
--- NOTE | 2018-11-01 11:49 | NUR ---
FREQUENT ROUNDING ON PT NOTICED IV IN PATIENT WATER CUP. PT PULLED OUT HER IV.
--- NOTE | 2018-11-01 12:16 | NUR ---
PT REQUESTED A BIBLE CALLED PBX STATED THEY DID NOT HAVE A BIBLE
--- NOTE | 2018-11-01 12:19 | NUR ---
CALLED [facility]. FOR FINGERPRINTING PER [facility] THEY DONT HAVE THE ABILITY TO FINGER PRINT THE PATIENT ALL OF THERE MACHINES ARE DOWN Addendum: 11/01/18 at 1221 by Kary Perez RN [facility] [phone]
--- NOTE | 2018-11-01 12:25 | NUR ---
SPOKE WITH DR. MCNAIR INFORMED HIM THAT THE FINGERPRINTING IS DOWN AND [place] [employer] IS UNABLE TO COME FINGERPRINT. HE STATED WE WILL KEEP HER ON IM ATIVAN AND WAIT FOR DR. MENDOZA BEFORE WE START AN IV SHE DOES NOT HAVE TO BE ON SOFT RESTRAINTS FOR NOW
--- NOTE | 2018-11-01 13:30 | NUR ---
PLACED SOFT WRIST RESTRAINTS ON PATIENT PER ORDERS TO START AN IV ON THE PATIENT.
--- NOTE | 2018-11-01 14:12 | NUR ---
PT OFF RESTRAINTS EATING WILL PLACE PT BACK ON RESTRAINTS AND START IV
[2018-11-01] MEDS ORDERED: OLANZapine 5 MG TAB PO SCH ×2 (15:25→21:00)
[2018-11-01 16:00] VITALS: BP 111/58
[2018-11-01] MEDS ORDERED: LORazepam 2 MG/ML VIAL IM/IVP SCH (17:45)
--- NOTE | 2018-11-01 17:56 | NUR ---
ADMINISTERED ATIVAN IM. DUPLICATE ORDER AT 1745 ALREADY ADMINISTERED MEDICATION VIA IM
--- NOTE | 2018-11-01 19:20 | NUR ---
ENDORSED PT TO PM RN PT APPEARS DISTRESS. IVF INFUSING IV SITE PATENT AND SHOWS NO SIGNS OF INFILTRATION OR INFLAMMATION
--- NOTE | 2018-11-01 19:23 | NUR ---
RECEIVED REPORT FROM RAIN GEE DAYSHIFT AT BEDSIDE FOR CONTINUITY OF CARE, PT IN STABLE CONDITION.
--- NOTE | 2018-11-01 21:00 | NUR ---
PT IN BED, ALERT BUT WITH C/O OF BEING SLEEPY. PT PULLED OUT IV SITE. PT ASKED ABOUT THE MEDICATION SHE TOOK DURING THE DAY AND SAYS THAT SHE FEELS SLEEPY , SHE ALLOWED V/S TO BE TAKEN BUT OTHERWISE REFUSE TO ACKNOWLEDGE STAFF AND TAKE HER ORDERED MEDICATION. V/S FOLLOWS T 98.7 P 95 R 18 B/P 114/71 02 96% ON ROOM AIR. ALL FALLS PRECAUTIONS IN PLACE. MAUDE CONTINUE TO MONITOR FOR SAFETY AND BEHAVIOR.
[2018-11-02] VITALS: BP 95/61
--- NOTE | 2018-11-02 | NUR ---
PT IN BED SLEEPING SOUNDLY, V/S FOLLOWS T 97.0 P 68 R 18 B/P 95/66 02 98% ON ROOM AIR. NO S/S OF PAIN OR DISTRESS NOTED. ALL FALLS PRECAUTIONS IN PLACE, AND CALL PATEL IN REACH.
--- NOTE | 2018-11-02 05:37 | NUR ---
PT ALLOWED STAFF TO DRAW BLOOD AND RECEIVE ANOTHER IV FOR FLUIDS. IV SITE IS 22G ON RIGHT WRIST. NS RUNNING AT 100MLS/ ORDERED. PT GOT UP FROM BED AND AMBULATED TO BATHROOM WITH STAFF STAND BY ASSISTANCE. GOWN CHANGED AND NEW LINEN PROVIDED.
[2018-11-02 07:13] LABS: BASOPHILS # (AUTO) 0.1 K/uL (0.00-0.22); BASOPHILS % (AUTO) 0.8 % (0.0-2.0); EOSINOPHILS # (AUTO) 0.3 K/uL (0-0.4); HEMOGLOBIN 13.3 g/dL (12.0-16.0); LYMPHOCYTES # (AUTO) 3.1 K/uL (2.5-16.5); LYMPHOCYTES % (AUTO) 45.2 % (20.5-51.1); MEAN CORPUSCULAR HEMOGLOBIN 31 pg (27-31); MEAN CORPUSCULAR HGB CONC 34 g/dL (33-37); MEAN CORPUSCULAR VOLUME 89.8 fL (80-94); MONOCYTES # (AUTO) 0.5 K/uL (0.8-1.0); MONOCYTES % (AUTO) 6.6 % (1.7-9.3); NEUTROPHILS # (AUTO) 2.9 K/uL (1.8-7.7); NEUTROPHILS % (AUTO) 42.4 % (42.2-75.2); PLATELET COUNT (AUTO) 338 K/uL (140-450); RED BLOOD CELL COUNT(AUTO) 4.34 MIL/uL (4.20-5.40); RED CELL DISTRIBUTION WIDTH 12.6 % (11.6-13.7); WHITE BLOOD COUNT (AUTO) 6.9 K/uL (4.8-10.8)
--- NOTE | 2018-11-02 07:21 | NUR ---
RECEIVED REPORT FROM PSYCHIATRIC CNS RN FOR CONTINUITY OF CARE. PT IN STABLE CONDITION. WILL ROUND FREQUENTLY ON PT
[2018-11-02 07:38] LABS: ANION GAP 11.8 (8-16); CARBON DIOXIDE 29.3 mmol/L (21-32); CREATININE 0.6 mg/dL (0.6-1.3); POTASSIUM 4.1 mmol/L (3.5-5.1)
[2018-11-02] MEDS: NACL 0.9% 1,000 ML IV SCH ×2 (07:45→17:45)
[2018-11-02 08:00] VITALS: BP 107/69
[2018-11-02] MEDS: LACTOBACILLUS RHAMNOSUS GG 1 EACH CAP PO SCH ×3 (09:00→21:52)
--- NOTE | 2018-11-02 10:11 | NUR ---
MORNING MEDS NOT ABLE TO ADMINISTER DUE TO PT REFUSING AND NOT BEING COOPERATIVE. GAVE CULTURELLE TO PT AND SHE OPENED AND WASTED CAPSULE ON HER LINENS. PT ALSO THREW SOILED FEMININE PAD AT ME. WILL NOT APPROACH PATIENT WITH THIS BEHAVIOR. NOTIFIED.
--- NOTE | 2018-11-02 11:17 | NUR ---
IONA contacted [place] at and spoke to dispatch Karley in regards to providing assistance to identify this patient. Karley stated she will send an officer to meet with this Sw and patient. Administration was made aware. Felicia Morrison [facility] Ext [phone] Addendum: 11/02/18 at 1309 by Felicia Morrison [place] Officer Jesusita Winston came to assist in identifying this patient. PD Officer and SW met with pt at the bedside. Pt awake, mute and not answering any questions asked by PD. Officer unable to check patient's finger prints as their device is not working. PD Officer stated he can only check patient's finger prints if pt agrees. Iona faxed [facility] for assistance with placement at a psych facility. Felicia Morrison [facility] Ext [phone] Addendum: 11/02/18 at 1454 by Felicia Morrison CM Iona called [facility] to inquire for bed available for this pt who is on a 5150 hold for gravely disabled. Iona was informed the unit is at capacity and they have 34 patient's in the ER waiting to be admitted. Iona will continue following up as needed. Felicia Morrison, ACSW Ext [phone]
--- NOTE | 2018-11-02 11:47 | NUR ---
PT RESTING IN BED NO S/S OF PAIN OR DISTRESS. WILL CONTINUE TYO ROUND FREQUENTLY ON PT.
--- NOTE | 2018-11-02 13:27 | NUR ---
PT WALKING AROUND ROOM. NO SIGNS OF PAIN OR DISTRESS. WILL KEEP CLOSE EYE ON PT.
[2018-11-02] MEDS: LORazepam 2 MG/ML VIAL IM/IVP SCH ×3 (13:48→21:55)
[2018-11-02 16:00] VITALS: BP 111/67
--- NOTE | 2018-11-02 17:03 | NUR ---
Upon receiving intake packet for this patient, I called to find out about any facilities that would be willing to accept patient. These facilities expressed that there are no [facility] beds available and they do not hold packets for a wait list. [facility] [place] [facility]/ [place] [facility]/Candie Blandon and [facility] use the [facility] as their intake hub for patients Addendum: 11/02/18 at 1716 by [email or web address] We will however continue to follow up
--- NOTE | 2018-11-02 17:26 | NUR ---
PT MOVED TO DIFFERENT ROOM WHERE A SITTER CAN KEEP AN EYE ON HER. PT FOUND MULTIPLE TIMES WRAPPING THINGS AROUND HEAD. PT DANGER TO SELF WITHOUT SITTER. ALL NEEDS CURRENTLY MET. WILL CONTINUE TO MONITOR PT CLOSELY.
--- NOTE | 2018-11-02 19:20 | NUR ---
RECEIVED BEDSIDE REPORT FROM DAY SHIFT NURSE. PATIENT IS SLEEPING AROUSABLE BY NAME AND TOUCH. RESPIRATION EVEN UNLABORED ON ROOM AIR. NO DISTRESS NOTED. SKIN IS WARM AND DRY. PLAN OF CARE WAS UP TO DATE. ALL SAFETY MEASURES IN PLACE. BED IS AT LOW POSITION. WILL CONTINUE TO MONITOR.
--- NOTE | 2018-11-02 19:50 | NUR ---
ENDORSED PT TO [facility] FOR CONTINUITY OF CARE. PT IN STABLE CONDITION AT THIS TIME.
--- NOTE | 2018-11-02 20:00 | NUR ---
PATIENT REFUSED FOR INITIAL ASSESSMENT SHE SAID SHE'S TIRED AND WANT TO SLEEP MORE. WILL CONTINUE TO MONITOR.
--- NOTE | 2018-11-02 21:00 | NUR ---
ALL SCHEDULED MEDS WERE GIVEN PER ORDER. NO ASE NOTED. WILL CONTINUE TO MONITOR
--- NOTE | 2018-11-02 22:00 | NUR ---
PATIENT IS AWAKE ASKED FOR FOOD. NO DISTRESS NOTED. DENIES PAIN. WILL CONTINUE TO MONITOR.
[2018-11-03] VITALS: BP 92/56
--- NOTE | 2018-11-03 | NUR ---
VITALS WERE TAKEN. PATIENT IN STABLE CONDITION. NO DISTRESS NOTED. WILL CONTINUE TO MONITOR.
--- NOTE | 2018-11-03 02:00 | NUR ---
CHECKED PATIENT. PATIENT SLEEPING RESPIRATION EVEN UNLABORED ON ROOM AIR. NO DISTRESS NOTED. WILL CONTINUE TO MONITOR.
[2018-11-03] MEDS: NACL 0.9% 1,000 ML IV SCH ×3 (03:41→23:08)
--- NOTE | 2018-11-03 03:41 | NUR ---
PATIENT NS IV FLUID NOT GIVEN DUE TO PATIENT REFUSED IV LINE INSERTION. MD IS AWARE OF THE SITUATION. WILL CONTINUE TO MONITOR
--- NOTE | 2018-11-03 04:00 | NUR ---
CHECKED PATIENT. PATIENT SLEEPING RESPIRATION EVEN UNLABORED ON ROOM AIR. NO DISTRESS NOTED. WILL CONTINUE TO MONITOR.
[2018-11-03 07:00] LABS: ANION GAP 9.1 (8-16); CARBON DIOXIDE 31.8 mmol/L (21-32); CREATININE 0.7 mg/dL (0.6-1.3); POTASSIUM 3.9 mmol/L (3.5-5.1)
--- NOTE | 2018-11-03 07:17 | NUR ---
ENDORSED PATIENT TO DAY SHIFT NURSE FOR CONTINUITY OF CARE. PATIENT IN STABLE CONDITION.
--- NOTE | 2018-11-03 07:25 | NUR ---
RECEIVED BEDSIDE REPORT FROM PROGRAM FACILITATOR NURSE, PT IS AWAKE AND ALERT, WALKING AROUND IN THE ROOM. PT IS WEARING HER OWN HOODED SWEATSHIRT UNDERNEATH THE HOSPITAL GOWN. PT IS ON ROOM AIR, SKIN INTACT. NO IV SITE NOTED PT CONTINUOUSLY PULLS OUT IV'S. SITTER IS AT THE BEDSIDE. WILL CONTINUE TO MONITOR.
[2018-11-03 07:35] LABS: PHOSPHORUS 4.6 mg/dL (2.5-4.9)
[2018-11-03 08:00] VITALS: BP 103/60
[2018-11-03] MEDS: LORazepam 2 MG/ML VIAL IM/IVP SCH ×2 (09:00→13:18)
[2018-11-03] MEDS: LACTOBACILLUS RHAMNOSUS GG 1 EACH CAP PO SCH ×2 (09:02→21:31)
--- NOTE | 2018-11-03 09:05 | NUR ---
ORDERED ATIVAN IM INJECTED, SECURITY PRESENT AT BEDSIDE. PT TOOK THE ORDERED PROBIOTIC WELL WITH HER MILK. SHE REFUSED THE SUBQ HEPARIN, STATED "THAT'S ENOUGH FOR TODAY". WILL CONTINUE TO MONITOR. SITTER IS AT THE DOOR.
--- NOTE | 2018-11-03 10:02 | NUR ---
DR BOYCE TALKING WITH PT AT BEDSIDE, ATTEMPTING TO GET SOME IDENTIFYING INFORMATION FROM HER. PT UNABLE TO PROVIDE HER REAL NAME OR DATE OF .
[2018-11-03 10:53] LABS: BASOPHILS # (AUTO) 0.1 K/uL (0.00-0.22); BASOPHILS % (AUTO) 1.1 % (0.0-2.0); EOSINOPHILS # (AUTO) 0.7 K/uL (0-0.4); EOSINOPHILS % (AUTO) 8.8 % (0.0-4.0); HEMATOCRIT 36.4 % (36-48); HEMOGLOBIN 12.1 g/dL (12.0-16.0); LYMPHOCYTES # (AUTO) 2.4 K/uL (2.5-16.5); LYMPHOCYTES % (AUTO) 30.4 % (20.5-51.1); MEAN CORPUSCULAR HEMOGLOBIN 30 pg (27-31); MEAN CORPUSCULAR HGB CONC 33 g/dL (33-37); MEAN CORPUSCULAR VOLUME 90.9 fL (80-94); MONOCYTES # (AUTO) 0.6 K/uL (0.8-1.0); MONOCYTES % (AUTO) 7.2 % (1.7-9.3); NEUTROPHILS # (AUTO) 4.1 K/uL (1.8-7.7); NEUTROPHILS % (AUTO) 52.5 % (42.2-75.2); PLATELET COUNT (AUTO) 316 K/uL (140-450); RED CELL DISTRIBUTION WIDTH 12.6 % (11.6-13.7); WHITE BLOOD COUNT (AUTO) 7.8 K/uL (4.8-10.8)
--- NOTE | 2018-11-03 12:26 | NUR ---
PT EATING LUNCH QUIETLY, SITTER IS AT THE DOOR.
--- NOTE | 2018-11-03 13:20 | NUR ---
ORDERED IM ATIVAN ADMINISTERED, WITH ASSISTANCE FROM SAMMY (SECURITY). PT TOLERATED WELL. PT IS NOT TALKING WITH PRIMARY RN, AND ONLY TALKS WITH CERTAIN STAFF. PT STILL HAS NOT PROVIDED US HER NAME. STATES, "MOTHERS ARE THE ONES WHO NAME THEIR CHILDREN."
--- NOTE | 2018-11-03 15:20 | NUR ---
JULIEN PLANNING F/U call made to [facility] , spoke to Rachelle who stated patient's info has been faxed to [facility], [facility], [facility] among other facilities however placement hasn't been secured. [facility] to continue looking for placement. JAISON Marcus Addendum: 11/03/18 at 1656 by Felicia Morrison Lisa called [facility] and spoke to [place] about this case. Lisa was informed about a program for the Mentally ill and Homeless. Lisa called this program at ; [employer] of the program, Chelsi, not available today. Lisa left contact information for follow-up. Lisa was informed that this program takes a few weeks/months and the client has to be willing to receive services. Lisa waiting for [employer]p program[employer]'s call to discuss a referral further. JAISON Marcus
[2018-11-03 16:00] VITALS: BP 103/60
--- NOTE | 2018-11-03 17:16 | NUR ---
PT MOVED TO ROOM 121-A
--- NOTE | 2018-11-03 17:53 | NUR ---
PT SEEN BY DR MENDOZA AT THIS TIME Addendum: 11/03/18 at 5969 by Yaneth Harris RN PER DR MENDOZA, PT IS WILLING TO TAKE PO ATIVAN, AND HER IM ATIVAN INJECTIONS WILL BE DC'D.
--- NOTE | 2018-11-03 19:20 | NUR ---
RECEIVED REPORT FROM AM NURSE. PT AT BED RESTING, BREATHING REGULARLY, FOLLOWS COMMANDS, ALERT TO NAME CALLING PT SAID THAT HER NAME IS MARK ANTHONY, REFUSES TO ANSWER QUESTIONS, PERRLA 3MM, BRISK, HEART RATE REGULAR, S1S2 PRESENT, CAP REFILL <3S, LUNG SOUNDS CLEAR THROUGHOUT, PT ON ROOM AIR, ABDOMEN SOFT, ROUND, NONDISTENDED, NONTENDER, BOWEL SOUNDS ACTIVE IN ALL QUADRANTS, BLADDER SOFT, ROUND, NONDISTENDED, NONTENDER, PT HAS 5/5 MUSCLE STRENGTH IN ALL EXTREMITIES, SKIN INTACT.
--- NOTE | 2018-11-03 19:30 | NUR ---
PT ENDORSED TO [facility] IN STABLE CONDITION
--- NOTE | 2018-11-03 21:29 | NUR ---
Previous facilities called. still no beds available tonight. Facilities stated to call back in the am
[2018-11-03] MEDS: risperiDONE 1 MG TAB PO SCH (21:31)
[2018-11-03] MEDS: LORazepam 1 MG TAB PO SCH (21:31)
--- NOTE | 2018-11-03 22:00 | NUR ---
MEDICATIONS GIVEN. PT AT BED, SITTING UP ON THE PHONE. VS WNL.
[2018-11-04] VITALS: BP 110/67
--- NOTE | 2018-11-04 00:17 | NUR ---
PT AT BED RESTING EYES CLOSED, BREATHING REGULARLY. HOB 30 DEGREES, SIDERAILS UP X2, BED AT LOWEST POSITION.
--- NOTE | 2018-11-04 03:25 | NUR ---
PT AT BED RESTING EYES CLOSED, BREATHING REGULARLY. HOB 30 DEGREES, SIDERAILS UP X2, BED AT LOWEST POSITION.
--- NOTE | 2018-11-04 06:47 | NUR ---
PT AWAKE AT BED. WATCHING TV. HOB 30 DEGREES, SIDERAILS UP X2
--- NOTE | 2018-11-04 07:25 | NUR ---
RECEIVED REPORT FROM CASTER INVESTMENT CASTING NURSE LEVAR FOR CONTINUITY OF CARE. PT IN STABLE CONDITION. RESPIRATIONS EVEN AND UNLABORED. NO IV AT THIS TIME. SAFETY MEASURES IN PLACE. BED IN LOW POSITION. CALL LIGHT AT BEDSIDE. WILL CONTINUE TO MONITOR.
[2018-11-04 08:00] VITALS: BP 142/64
[2018-11-04] MEDS: LACTOBACILLUS RHAMNOSUS GG 1 EACH CAP PO SCH ×2 (09:07→20:46)
[2018-11-04] MEDS: LORazepam 1 MG TAB PO SCH ×4 (09:07→20:46)
[2018-11-04] MEDS: risperiDONE 1 MG TAB PO SCH ×2 (09:07→20:46)
--- NOTE | 2018-11-04 09:15 | NUR ---
GAVE ORDERED DUE MEDICATIONS AT THIS TIME. PT IN STABLE CONDITION. PT USING VERY FEW WORDS TO COMMUNICATE. VERY COOPERATIVE AT THIS TIME. BED IN LOW POSITION. CALL LIGHT AT BEDSIDE. WILL CONTINUE TO MONITOR.
--- NOTE | 2018-11-04 09:39 | NUR ---
This patient was found on [address] in [place] by Chong HER. Sw called [place] [employer] and requested assistance in identifying this patient. Lisa was informed their finger print mobile machine is currently out of service. Felicia Morrison, ACSW Ext [phone]
[2018-11-04] MEDS: NACL 0.9% 1,000 ML IV SCH ×2 (09:45→20:45)
--- NOTE | 2018-11-04 11:01 | NUR ---
PT STATED HER NAME IS MARK ANTHONY. NO LAST NAME GIVEN AT THIS TIME. RESPIRATIONS EVEN AND UNLABORED. BED IN LOW POSITION. CALL LIGHT AT BEDSIDE. WILL CONTINUE TO MONITOR.
--- NOTE | 2018-11-04 12:43 | NUR ---
PT EATING LUNCH AT THIS TIME. PT IN STABLE CONDITION. RESPIRATIONS EVEN AND UNLABORED. BED IN LOW POSITION. CALL LIGHT AT BEDSIDE. WILL CONTINUE TO MONITOR.
--- NOTE | 2018-11-04 14:39 | NUR ---
PT LYING IN BED READING AT THIS TIME. RESPIRATIONS EVEN AND UNLABORED. BED IN LOW POSITION. CALL LIGHT AT BEDSIDE. WILL CONTINUE TO MONITOR.
--- NOTE | 2018-11-04 15:00 | NUR ---
SPOKE WITH PT (MARK ANTHONY). PT STATED SHE STAYED AT [facility]OR [address], [address] [place] [address]. NO PHONE NUMBER AVAILABLE AT THIS TIME
--- NOTE | 2018-11-04 16:58 | NUR ---
CHANGED PT SHEETS AND PT PERFORMED SPONGE BATH INDEPENDENTLY. PT TOLERATED WELL. WILL CONTINUE TO MONITOR.
[2018-11-04 17:03] VITALS: BP 114/62
--- NOTE | 2018-11-04 17:54 | NUR ---
PT EATING SITTING UP IN BED LEGS DANGLING AT THIS TIME IN STABLE CONDITION. BED IN LOW POSITION. WILL CONTINUE TO MONITOR.
--- NOTE | 2018-11-04 19:13 | NUR ---
GAVE REPORT TO INDUSTRIAL ENERGY ENGINEER NURSE CLIFF FOR CONTINUITY OF CARE. PT IN STABLE CONDITION.
--- NOTE | 2018-11-04 19:30 | NUR ---
Received endorsement from AM shift RN; patient A/Ox0, doesn't know her name. Introduced self, updated board. No SOB or distress noted, on room air. No IV site. Bed in the lowest position, call light within reach. Initial assessment done. Will continue to monitor.
--- NOTE | 2018-11-04 20:56 | NUR ---
[facility] NOC shift is aware of patient. After reviewing patients chart, 5150 hold was on 11/03/18 @ 12PM. Patient will need to be re evaluated. [facility] will continue to monitor RN/MD notes.
--- NOTE | 2018-11-04 21:45 | NUR ---
Due meds given, tolerated well.
--- NOTE | 2018-11-04 23:55 | NUR ---
Vitals taken'; patient asleep, eyes closed, visible chest rise and fall noted.
[2018-11-05] VITALS: BP 133/65
--- NOTE | 2018-11-05 02:40 | NUR ---
Checks made; patient asleep on left lateral side, visible chest rise and fall noted.
[2018-11-05] MEDS: NACL 0.9% 1,000 ML IV SCH ×2 (04:03→15:45)
--- NOTE | 2018-11-05 04:39 | NUR ---
Rounds done; patient resting comfortably, visible chest rise and fall noted.
--- NOTE | 2018-11-05 06:50 | NUR ---
Vitals stable, due meds given. Will endorse patient to AM shift RN for continuity of care.
--- NOTE | 2018-11-05 07:25 | NUR ---
RECEIVED BEDSIDE REPORT FROM CLEANING ASSOCIATE NURSE FOR CONTINUITY OF CARE. PATIENT AWAKE AND RESTING ON BED AT THIS TIME. PATIENT IS AAOX1, PATIENT WILL RESPONSE WHEN CALL HER MS WEBBER, OTHER THAN THAT PATIENT REFUSED TO TALK. RESPIRATION EVEN AND UNLABORED ON RA. FLACC 0. NO SIGNS OF DISTRESS NOTED. PATIENT REFUSED IV ACCESS AND WEAR HOSPITAL GOWN. PATIENT WEARING HER OWN CLOTHES AT THIS TIME. PATIENT IS ABLE TO AMBULATE AND CONTINENT. DISCUSSED PLAN OF CARE WITH PATIENT AND PATIENT SILENT. SAFETY MEASURES IN PLACE. BED IN LOW POSITION AND CALL LIGHT WITHIN REACH. INSTRUCTED PATIENT TO USE THE CALL LIGHT FOR ANY ASSISTANCE AND PATIENT SILENT.
[2018-11-05 08:00] VITALS: BP 111/66
--- NOTE | 2018-11-05 08:28 | NUR ---
Late Entry: IONA attempted to conduct assessment with product design engineer Aide present. Patient began to disclose that her name is Lashell and that she [facility] [employer] SW asked probing questions and patient provided date of : 1965 and social security number: [id number]. Patient stated that she was staying with a Cash Grain Farmer named Cash Grain Farmer Reyes. IONA consulted with Thermoplastic Technician Jessica to see if the social security number matched, but no individual populated with that date of and social security number. IONA [facility] and found a episcopal with a Cash Grain Farmer of Addendum: 11/05/18 at 0836 by Pk Bronson IONA [facility] with a Cash Grain Farmer of Re[place]. IONA/PREM will follow up.
[2018-11-05] MEDS: LACTOBACILLUS RHAMNOSUS GG 1 EACH CAP PO SCH ×2 (09:17→21:23)
[2018-11-05] MEDS: risperiDONE 1 MG TAB PO SCH ×2 (09:17→21:24)
[2018-11-05] MEDS: LORazepam 1 MG TAB PO SCH ×4 (09:17→21:23)
--- NOTE | 2018-11-05 09:18 | NUR ---
ADMINISTERED MEDS PER MD ORDER, PATIENT TOLERATED WELL. MEDS EDUCATION PROVIDED AT BEDSIDE, REINFORCEMENT NEEDED. PATIENT AWAKE AND RESTING ON BED AT THIS TIME. FLACC 0. RESPIRATION EVEN AND UNLABORED ON RA. NO SIGNS OF DISTRESS NOTED. SAFETY MEASURES IN PLACE. BED IN LOW POSITION AND CALL LIGHT WITHIN REACH. INSTRUCTED PATIENT TO USE THE CALL LIGHT FOR ANY ASSISTANCE AND PATIENT WAS QUIET.
--- NOTE | 2018-11-05 10:48 | NUR ---
ASKED PATIENT IF SHE WOULD LIKE TO TAKE A SHOWER, PATIENT WAS QUIET AND PUT THE BLANKET OVER HER HEAD. NO RESPONSE. INFORMED PATIENT WHENEVER SHE FEELS LIKE TO TAKE SHOWER, I CAN TAKE HER TO THE SHOWER ROOM AND PROVIDE SUPPLIES. PATIENT DID NOT REPLY AND LYING ON BED. NO SIGNS OF DISTRESS NOTED. SAFETY MEASURES IN PLACE. BED IN LOW POSITION AND CALL LIGHT WITHIN REACH. INSTRUCTED PATIENT TO USE THE CALL LIGHT FOR ANY ASSISTANCE.
--- NOTE | 2018-11-05 11:47 | NUR ---
PATIENT AWAKE AND RESTING ON BED AT THIS TIME. FLACC 0. NO SIGNS OF DISTRESS NOTED. ASKED IF PATIENT WOULD LIKE TO TAKE A SHOWER, PATIENT DID NOT REPLY. SAFETY MEASURES IN PLACE. BED IN LOW POSITION AND CALL LIGHT WITHIN REACH. INSTRUCTED PATIENT TO USE THE CALL LIGHT FOR ANY ASSISTANCE.
--- NOTE | 2018-11-05 11:54 | NUR ---
IONA and IONA Duarte visited [facility] [employer]. IONA met with receptionist/telephone operator who referred SW to Pastor Reyes [place] [phone]. Per Pastor Chambers, patient's name is Ros Kohler. Pastor Chambers reported that patient has been under his care at the [facility] for two months and food, clothing, and other supplies were provided for patient. Pastor Chambers said that the [facility] could no longer accommodate the patient and was unable to house her any longer. Pastor Chambers stated that he would make himself available if any further questions arise. IONA will follow up.
--- NOTE | 2018-11-05 13:21 | NUR ---
ADMINISTERED MED PER MD ORDER, PATIENT TOLERATED WELL. PATIENT IS TALKING TO ROASTER SUPERVISOR TAVON AND SECURITY SAMMY AT BEDSIDE. NO SIGNS OF DISTRESS NOTED. SAFETY MEASURES IN PLACE. BED IN LOW POSITION AND CALL LIGHT WITHIN REACH. INSTRUCTED PATIENT TO USE THE CALL LIGHT FOR ANY ASSISTANCE.
--- NOTE | 2018-11-05 15:36 | NUR ---
PATIENT AWAKE AND RESTING ON BED. FLACC 0. RESPIRATION EVEN AND UNLABORED ON RA. NO SIGNS OF DISTRESS NOTED. SAFETY MEASURES IN PLACE. BED IN LOW POSITION AND CALL LIGHT WITHIN REACH. INSTRUCTED PATIENT TO USE THE CALL LIGHT FOR ANY ASSISTANCE AND PATIENT WAS QUIET.
--- NOTE | 2018-11-05 15:46 | NUR ---
11/05/18 RD FOLLOW UP COMPLETED PLEASE REFER TO NUTRITION ASSESSMENT UNDER CARE ACTIVITY FOR ESTIMATED NUTRITIONAL NEEDS. 1. CONTINUE PUREE DIET TOLERATED 2. IF PATIENT TOLERATES PUREE, RECOMMEND SWALLOW EVALUATION FOR PATIENT 3. RD TO FOLLOW-UP 5-7 DAYS, LOW RISK BONIFACIO ESQUIVEL, RD
--- NOTE | 2018-11-05 15:51 | NUR ---
UNABLE TO ADMINISTER IVF DUE TO PATIENT REFUSED IV ACCESS. EDUCATION PROVIDED AT BEDSIDE, REINFORCEMENT NEEDED. PATIENT WAS QUIET. NO SIGNS OF DISTRESS NOTED. SAFETY MEASURES IN PLACE. BED IN LOW POSITION AND CALL LIGHT WITHIN REACH. INSTRUCTED PATIENT TO USE THE CALL LIGHT FOR ANY ASSISTANCE AND PATIENT WAS QUIET.
[2018-11-05 16:00] VITALS: BP 105/63
--- NOTE | 2018-11-05 17:05 | NUR ---
ADMINISTERED MED PER MD ORDER, PATIENT TOLERATED WELL. MED EDUCATION PROVIDED AT BEDSIDE, PATIENT NODDED HER HEAD. PATIENT ASKED " CAN I HAVE MORE MILK?" PROVIDED REQUEST. PATIENT AWAKE AND RESTING ON BED AT THIS TIME. NO SIGNS OF DISTRESS NOTED. SAFETY MEASURES IN PLACE. BED IN LOW POSITION AND CALL LIGHT WITHIN REACH. INSTRUCTED PATIENT TO USE THE CALL LIGHT FOR ANY ASSISTANCE AND PATIENT AWARE.
--- NOTE | 2018-11-05 19:27 | NUR ---
ENDORSED PATIENT AT BEDSIDE TO AUTOMOTIVE REPAIR TECHNICIAN NURSE FOR CONTINUITY OF CARE. PATIENT AWAKE AND RESTING ON BED AT THIS TIME. NO SIGNS OF DISTRESS NOTED. PATIENT IS IN STABLE CONDITION. SAFETY MEASURES IN PLACE.
--- NOTE | 2018-11-05 19:31 | NUR ---
Received endorsement from AM shift RN. Introduced self, updated board. Patient wants to be called "Lashell". No SOB or distress noted, on room air. No IV site. Bed in the lowest position, call light within reach. Initial assessment done. Will continue to monitor.
--- NOTE | 2018-11-05 21:45 | NUR ---
Due meds given, tolerated well.
[2018-11-06] VITALS: BP 116/65
--- NOTE | 2018-11-06 00:20 | NUR ---
Vitals taken, no no distress noted.
[2018-11-06] MEDS: NACL 0.9% 1,000 ML IV SCH ×3 (00:29→21:45)
--- NOTE | 2018-11-06 02:55 | NUR ---
Rounds done; patient asleep, eyes closed, visible chest rise and fall noted.
--- NOTE | 2018-11-06 04:59 | NUR ---
Checks made; no distress noted.
--- NOTE | 2018-11-06 06:52 | NUR ---
Vitals stable, due meds given. Will endorse to AM shift RN for continuity of care.
--- NOTE | 2018-11-06 07:05 | NUR ---
RECEIVED BEDSIDE REPORT FROM PROCESSING TECH NURSE FOR CONTINUITY OF CARE. PATIENT AWAKE AND RESTING ON BED AT THIS TIME. PATIENT IS AAOX1. RESPIRATION EVEN AND UNLABORED ON RA. FLACC 0. NO SIGNS OF DISTRESS NOTED. PATIENT REFUSED IV ACCESS AND WEAR HOSPITAL GOWN. PATIENT WEARING HER OWN CLOTHES AT THIS TIME. PATIENT IS ABLE TO AMBULATE AND CONTINENT. DISCUSSED PLAN OF CARE WITH PATIENT AND PATIENT SILENT. SAFETY MEASURES IN PLACE. BED IN LOW POSITION AND CALL LIGHT WITHIN REACH. INSTRUCTED PATIENT TO USE THE CALL LIGHT FOR ANY ASSISTANCE AND PATIENT SILENT.
[2018-11-06 08:00] VITALS: BP 102/53
--- NOTE | 2018-11-06 08:30 | NUR ---
ASKED IF PATIENT WOULD LIKE TO TAKE SHOWER, PATIENT DID NOT REPLY AND SITTING QUIETLY ON CHAIR. INFORMED PATIENT THAT IF SHE WOULD LIKE TO SHOWER, REGIONAL MARKETING MANAGER WILL ASSIST HER AND WILL PROVIDE SHOWER SUPPLIES. PATIENT WAS QUIET. NO SIGNS OF DISTRESS NOTED. SAFETY MEASURES IN PLACE. BED IN LOW POSITION AND CALL LIGHT WITHIN REACH.
[2018-11-06] MEDS: LORazepam 1 MG TAB PO SCH ×3 (09:43→17:14)
[2018-11-06] MEDS: LACTOBACILLUS RHAMNOSUS GG 1 EACH CAP PO SCH (09:43)
[2018-11-06] MEDS: risperiDONE 1 MG TAB PO SCH ×2 (09:43→20:37)
--- NOTE | 2018-11-06 09:44 | NUR ---
ADMINISTERED MEDS PER MD ORDER, PATIENT TOLERATED WELL. MED EDUCATION PROVIDED TO PATIENT. ASKED IF PT WOULD LIKE TO SHOWER, PATIENT DID NOT REPLY AND SITTING QUIETLY. NO SIGNS OF DISTRESS NOTED. SAFETY MEASURES IN PLACE. BED IN LOW POSITION AND CALL LIGHT WITHIN REACH.
--- NOTE | 2018-11-06 11:57 | NUR ---
UNABLE TO ADMINISTER IVF. PATIENT REFUSED IV ACCESS. PATIENT AWAKE AND RESTING ON BED AT THIS TIME. NO SIGNS OF DISTRESS NOTED. SAFETY MEASURES IN PLACE. BED IN LOW POSITION AND CALL LIGHT WITHIN REACH. INSTRUCTED PATIENT TO USE THE CALL LIGHT FOR ANY ASSISTANCE.
--- NOTE | 2018-11-06 13:21 | NUR ---
ADMINISTERED MED PER MD ORDER, PATIENT TOLERATED WELL. PATIENT AWAKE AND RESTING ON BED. FLACC 0. NO SIGNS OF DISTRESS NOTED. SAFETY MEASURES IN PLACE. BED IN LOW POSITION AND CALL LIGHT WITHIN REACH.
--- NOTE | 2018-11-06 15:20 | NUR ---
PATIENT RESTING ON BED. FLACC 0. NO SIGNS OF DISTRESS NOTED. SAFETY MEASURES IN PLACE. BED IN LOW POSITION AND CALL LIGHT WITHIN REACH.
--- NOTE | 2018-11-06 15:54 | NUR ---
Spoke with Nica earlier this afternoon and expressed that we need the updated hold under the corrected name. We also need an updated chart of phys notes, nursing notes and face sheet for the correct information to continue this process. We did send since 10/31 all the information of Uma Centeno. Thank you
[2018-11-06 16:00] VITALS: BP 109/60
--- NOTE | 2018-11-06 16:48 | NUR ---
ASKED IF PATIENT WOULD LIKE TO SHOWER, PATIENT REPLIED " NOT TODAY. I WILL ON FRIDAY." EXPLAINED TO PATIENT THAT PERSONAL HYGIENE IS IMPORTANT AND PROMOTE HEALTH. PATIENT WAS QUIET. NO SIGNS OF DISTRESS NOTED. SAFETY MEASURES IN PLACE. BED IN LOW POSITION AND CALL LIGHT WITHIN REACH. INSTRUCTED PATIENT TO USE THE CALL LIGHT FOR ANY ASSISTANCE.
--- NOTE | 2018-11-06 17:14 | NUR ---
ADMINISTERED MED PER MD ORDER, PATIENT TOLERATED WELL. PATIENT AWAKE AND RESTING ON BED AT THIS TIME. ANO SIGNS OF DISTRESS NOTED. SAFETY MEASURES IN PLACE. BED IN LOW POSITION AND CALL LIGHT WITHIN REACH. INSTRUCTED PATIENT TO USE THE CALL LIGHT FOR ANY ASSISTANCE.
--- NOTE | 2018-11-06 19:28 | NUR ---
ENDORSED PATIENT AT BEDSIDE TO CARPENTER REFRIGERATOR NURSE FOR CONTINUITY OF CARE. PATIENT AWAKE AND RESTING ON BED AT THIS TIME. NO SIGNS OF DISTRESS NOTED. PATIENT IS IN STABLE CONDITION. SAFETY MEASURES IN PLACE. BED IN LOW POSITION AND CALL LIGHT WITHIN REACH.
--- NOTE | 2018-11-06 19:29 | NUR ---
RECEIVED BEDSIDE REPORT FROM NURSE SUBSTANCE ABUSE NURSE FOR CONTINUITY OF CARE. PATIENT AWAKE AND RESTING ON BED AT THIS TIME. PATIENT IS AAOX1. RESPIRATION EVEN AND UNLABORED ON RA. PATIENT REFUSED IV ACCESS AND WEAR HOSPITAL GOWN. PATIENT WEARING HER OWN CLOTHES AT THIS TIME. PATIENT IS ABLE TO AMBULATE AND CONTINENT. SAFETY MEASURES IN PLACE. BED IN LOW POSITION AND CALL LIGHT WITHIN REACH.
--- NOTE | 2018-11-06 20:43 | NUR ---
GIVEN HEPARIN AND RISPERDAL MD ORDERED. PT TOLERATED WELL. PT REFUSE TO START IV ACCESS. WILL CONTINUE TO MONITOR.
--- NOTE | 2018-11-06 22:15 | NUR ---
PT LYING IN BED. NO ACUTE DISTRESS NOTED. BED IN LOW POSITION. CALL LIGHT WITHIN REACH.
[2018-11-07] VITALS: BP 117/99
--- NOTE | 2018-11-07 00:05 | NUR ---
VS CHECKED, WITHIN NORMAL RANGE. UNABLE TO ADMINISTER IVF D/T PT REFUSE IV START. WILL CONTINUE TO MONITOR.
--- NOTE | 2018-11-07 02:15 | NUR ---
PT SLEEPING IN BED. NO ACUTE DISTRESS NOTED. WILL CONTINUE TO MONITOR.
--- NOTE | 2018-11-07 03:27 | NUR ---
[facility] still has not received new 5150 hold with patients correct name. Still no update on bed placement at this time. [facility], spoke with [facility], spoke with Tessa German [facility], spoke with [facility] spoke with Nikki Chandler [facility], spoke with [facility], spoke with Joshua CRUZ [facility], no answer [facility] will continue to monitor RN/MD notes
--- NOTE | 2018-11-07 04:45 | NUR ---
PT SLEEPING IN BED COMFORTABLY. BREATHING EVEN AND UNLABORED. BED IN LOW POSITION. CALL LIGHT WITHIN REACH.
--- NOTE | 2018-11-07 06:45 | NUR ---
PT LYING IN BED. NO ACUTE DISTRESS NOTED. BED IN LOW POSITION, CALL LIGHT WITHIN REACH.
[2018-11-07] MEDS: NACL 0.9% 1,000 ML IV SCH ×2 (07:45→17:26)
--- NOTE | 2018-11-07 08:48 | NUR ---
RECEIVED BED SIDE REPORT FROM HARDWOOD FLOOR INSTALLER RN. PT AWAKE, SITTING ON EDGE OF BED. PT LET ME TAKE HER VS. VS STABLE, ON RA IN NO RESP DISTRESS. ASKED PT IF SHE KNEW WHERE SHE WAS, PT NOT SPEAKING. PT EATING BREAKFAST. NO IV ACCESS. ON PUREED DIET. WILL CONTINUE TO MONITOR.
[2018-11-07] MEDS: LORazepam 1 MG TAB PO SCH ×3 (09:13→17:00)
[2018-11-07] MEDS: LACTOBACILLUS RHAMNOSUS GG 1 EACH CAP PO SCH (09:13)
[2018-11-07] MEDS: risperiDONE 1 MG TAB PO SCH ×2 (09:14→21:00)
--- NOTE | 2018-11-07 09:20 | NUR ---
GAVE AM MEDS, CRUSHED AND MIXED WITH HONEY CONSISTENCY MILK. PT TOOK MEDS. WILL CONTINUE TO MONITOR.
--- NOTE | 2018-11-07 09:29 | NUR ---
PT STATED SHE WANTED HEPARIN TO BE GIVEN AT 1000 THIS AM.
[2018-11-07 10:07] VITALS: BP 96/56
--- NOTE | 2018-11-07 11:30 | NUR ---
PT REFUSED BLOOD DRAW. STATED SHE WANTED IT DONE AFTER LUNCH. PT CURRENTLY SLEEPING IN NO DISTRESS
[2018-11-07 13:50] LABS: BASOPHILS # (AUTO) 0.1 K/uL (0.00-0.22); BASOPHILS % (AUTO) 0.7 % (0.0-2.0); EOSINOPHILS # (AUTO) 0.6 K/uL (0-0.4); EOSINOPHILS % (AUTO) 7.7 % (0.0-4.0); HEMATOCRIT 37.7 % (36-48); HEMOGLOBIN 12.7 g/dL (12.0-16.0); LYMPHOCYTES # (AUTO) 2.5 K/uL (2.5-16.5); LYMPHOCYTES % (AUTO) 31.3 % (20.5-51.1); MEAN CORPUSCULAR HEMOGLOBIN 31 pg (27-31); MEAN CORPUSCULAR HGB CONC 34 g/dL (33-37); MEAN CORPUSCULAR VOLUME 90.9 fL (80-94); MONOCYTES # (AUTO) 0.5 K/uL (0.8-1.0); MONOCYTES % (AUTO) 5.9 % (1.7-9.3); NEUTROPHILS # (AUTO) 4.3 K/uL (1.8-7.7); NEUTROPHILS % (AUTO) 54.4 % (42.2-75.2); PLATELET COUNT (AUTO) 342 K/uL (140-450); RED BLOOD CELL COUNT(AUTO) 4.15 MIL/uL (4.20-5.40); RED CELL DISTRIBUTION WIDTH 12.5 % (11.6-13.7)
[2018-11-07 14:21] LABS: ANION GAP 13.9 (8-16); CREATININE 0.7 mg/dL (0.6-1.3); POTASSIUM 3.9 mmol/L (3.5-5.1)
[2018-11-07 14:32] LABS: MAGNESIUM 1.9 mg/dL (1.8-2.4); PHOSPHORUS 4.5 mg/dL (2.5-4.9)
--- NOTE | 2018-11-07 14:36 | NUR ---
BLOOD DRAWN COMPLETED AND LAB RESULTS AVAILABLE. PT AWAKE AT THIS TIME DRINKING JUICE. PT IN NO DISTRESS. PT STILL REFUSING TO SPEAK. WILL CONTINUE TO MONITOR.
[2018-11-07 17:22] VITALS: BP 127/70
--- NOTE | 2018-11-07 17:26 | NUR ---
PT REFUSED ATIVAN 2MG FOR 1700 SCHEDULE.
--- NOTE | 2018-11-07 19:04 | NUR ---
GAVE BED SIDE REPORT TO GERARD HARPER. PT STABLE AND CURRENTLY SLEEPING.
--- NOTE | 2018-11-07 19:24 | NUR ---
RECEIVED REPORT FORM YAA GEE DAYSHIFT NURSE AT BEDSIDE FOR CONTINUITY OF CARE, PT IN STABLE CONDITION.
--- NOTE | 2018-11-07 20:06 | NUR ---
Change of shift report was given. However, patient has been in facility for a period of time and with no updated notes or hold with name to reflect the patient. Patient was Uma PETIT. Please send any updated nursing/physician notes (3-4 days) and updated hold with correct name which may make it easier for facilities to consider patient. At this time the hold is . Addendum: 11/07/18 at 2015 by Destiney Yoo CM addendum the hold will 11/08 1929
--- NOTE | 2018-11-07 21:00 | NUR ---
PT IN BED NO S/S OF PAIN OR DISTRESS NOTED. PT SLEEPING, SHE WAS AROUSABLE BUT SHE REFUSED TO ACKNOWLEDGE STAFF. PT DID ALLOW STAFF TO GIVEN HER THE ORDERED HEPARIN SHOT, BUT SHE REFUSED VITALS SIGNS AND SHE REFUSED HER RISPERDAL.
--- NOTE | 2018-11-08 | NUR ---
PT TEMP 97.9. PT REFUSED ALL OTHER V/S AND REFUSE TO ACKNOWLEDGE STAFF. PT UP TO TOILET AND BACK SAFETY.
--- NOTE | 2018-11-08 03:00 | NUR ---
PT IN BED ASLEEP NO S/S OF PAIN OR DISTRESS NOTED.
[2018-11-08] MEDS: NACL 0.9% 1,000 ML IV SCH ×3 (03:45→23:45)
--- NOTE | 2018-11-08 06:00 | NUR ---
PT IN BED NO S/S OF PAIN OR DISTRESS NOTED. PT UP TO TOILET AND BACK STEADILY, NO BEHAVIORS THIS SHIFT . PT IN STABLE CONDITION, WILL ENDORSE POC TO AM SHIFT.
[2018-11-08 06:50] LABS: BASOPHILS % (AUTO) 0.5 % (0.0-2.0); EOSINOPHILS # (AUTO) 0.7 K/uL (0-0.4); EOSINOPHILS % (AUTO) 8.9 % (0.0-4.0); HEMATOCRIT 35.1 % (36-48); HEMOGLOBIN 11.8 g/dL (12.0-16.0); LYMPHOCYTES # (AUTO) 2.5 K/uL (2.5-16.5); LYMPHOCYTES % (AUTO) 33.4 % (20.5-51.1); MEAN CORPUSCULAR HEMOGLOBIN 31 pg (27-31); MEAN CORPUSCULAR HGB CONC 34 g/dL (33-37); MONOCYTES # (AUTO) 0.6 K/uL (0.8-1.0); NEUTROPHILS # (AUTO) 3.7 K/uL (1.8-7.7); NEUTROPHILS % (AUTO) 49.2 % (42.2-75.2); PLATELET COUNT (AUTO) 327 K/uL (140-450); RED BLOOD CELL COUNT(AUTO) 3.86 MIL/uL (4.20-5.40); RED CELL DISTRIBUTION WIDTH 12.8 % (11.6-13.7); WHITE BLOOD COUNT (AUTO) 7.6 K/uL (4.8-10.8)
--- NOTE | 2018-11-08 07:30 | NUR ---
RECEIVED BEDSIDE REPORT FROM SUPERVISOR BRINE NURSE FOR CONTINUITY OF CARE. PATIENT AWAKE AND RESTING ON BED AT THIS TIME. PATIENT IS AAOX1, PATIENT WILL RESPONSE WHEN CALL HER MS WEBBER, OTHER THAN THAT PATIENT REFUSED TO TALK. RESPIRATION EVEN AND UNLABORED ON RA. FLACC 0. NO SIGNS OF DISTRESS NOTED. PATIENT REFUSED IV ACCESS AND WEAR HOSPITAL GOWN. PATIENT WEARING HER OWN CLOTHES AT THIS TIME. PATIENT IS ABLE TO AMBULATE AND CONTINENT. DISCUSSED PLAN OF CARE WITH PATIENT AND PATIENT SILENT. SAFETY MEASURES IN PLACE. BED IN LOW POSITION AND CALL LIGHT WITHIN REACH. INSTRUCTED PATIENT TO USE THE CALL LIGHT FOR ANY ASSISTANCE AND PATIENT SILENT.
[2018-11-08 07:38] LABS: PHOSPHORUS 4.5 mg/dL (2.5-4.9)
[2018-11-08 07:51] LABS: ANION GAP 14.6 (8-16); CARBON DIOXIDE 25.3 mmol/L (21-32); CREATININE 0.6 mg/dL (0.6-1.3); POTASSIUM 3.9 mmol/L (3.5-5.1)
[2018-11-08 08:00] VITALS: BP 114/50
[2018-11-08] MEDS: LORazepam 1 MG TAB PO SCH ×3 (09:35→17:04)
[2018-11-08] MEDS: LACTOBACILLUS RHAMNOSUS GG 1 EACH CAP PO SCH (09:35)
[2018-11-08] MEDS: risperiDONE 1 MG TAB PO SCH ×2 (09:36→23:33)
--- NOTE | 2018-11-08 09:38 | NUR ---
ADMINISTERED MEDS PER MD ORDER, PATIENT TOLERATED WELL. MEDS EDUCATION PROVIDED TO PATIENT AND PATIENT WAS QUIET. PATIENT IS AWAKE AND RESTING ON BED AT THIS TIME. NO SIGNS OF DISTRESS NOTED. SAFETY MEASURES IN PLACE. BED IN LOW POSITION AND CALL LIGHT WITHIN REACH. INSTRUCTED PATIENT TO USE THE CALL LIGHT FOR ANY ASSISTANCE AND PATIENT NODDED HER HEAD.
--- NOTE | 2018-11-08 11:20 | NUR ---
PATIENT AWAKE AND RESTING ON BED AT THIS TIME. FLACC 0. NO SIGNS OF DISTRESS NOTED. SAFETY MEASURES IN PLACE. BED IN LOW POSITION AND CALL LIGHT WITHIN REACH. INSTRUCTED PATIENT TO USE THE CALL LIGHT FOR ANY ASSISTANCE AND PATIENT WAS QUIET.
--- NOTE | 2018-11-08 13:36 | NUR ---
ADMINISTERED MED PER MD ORDER, PATIENT TOLERATED WELL. MED EDUCATION PROVIDED TO PATIENT AND PATIENT WAS QUIET; REINFORCEMENT NEEDED. PATIENT AWAKE AND WATCHING TV ON BED AT THIS TIME. NO SIGNS OF DISTRESS NOTED. SAFETY MEASURES IN PLACE. BED IN LOW POSITION AND CALL LIGHT WITHIN REACH. INSTRUCTED PATIENT TO USE THE CALL LIGHT FOR ANY ASSISTANCE.
--- NOTE | 2018-11-08 15:25 | NUR ---
PATIENT AWAKE AND WATCHING TV ON BED AT THIS TIME. NO SIGNS OF DISTRESS NOTED. SAFETY MEASURES IN PLACE. BED IN LOW POSITION AND CALL LIGHT WITHIN REACH. INSTRUCTED PATIENT TO USE THE CALL LIGHT FOR ANY ASSISTANCE.
[2018-11-08 16:00] VITALS: BP 100/54
--- NOTE | 2018-11-08 17:04 | NUR ---
ADMINISTERED MED PER MD ORDER, PATIENT TOLERATED WELL. PATIENT AWAKE AND SITTING UP ON BED. FLACC 0. NO SIGNS OF DISTRESS NOTED. SAFETY MEASURES IN PLACE. BED IN LOW POSITION AND CALL LIGHT WITHIN REACH. INSTRUCTED PATIENT TO USE THE CALL LIGHT FOR ANY ASSISTANCE.
--- NOTE | 2018-11-08 19:05 | NUR ---
ENDORSED PATIENT AT BEDSIDE TO PATIENT ACCOUNTING REPRESENTATIVE NURSE FOR CONTINUITY OF CARE. PATIENT AWAKE AND RESTING ON BED. NO SIGNS OF DISTRESS NOTED. SAFETY MEASURES IN PLACE. PATIENT IS IN STABLE CONDITION.
--- NOTE | 2018-11-08 19:32 | NUR ---
RECEIVED REPORT FORM ALBERTO RN DAYSHIFT AT BEDSIDE FOR CONTINUITY OF CARE, PT IN STABLE CONDITION.
--- NOTE | 2018-11-08 21:00 | NUR ---
PT IN BED SLEEPING BUT AROUSABLE TO NAME AND LIGHT TOUCH. V/S FOLLOWS T 97.2 P 81 R 18 B/P 132/62 02 95% ON ROOM AIR. PT DIDN'T ACKNOWLEDGE STAFF BUT TO SAY SHE WANTED A SNACK. PT DID TAKE HER RISPERDAL PO IN MILK WELL HE HEPARIN SHOT THAT WAS DUE. SHE NO S/S OF PAIN OR DISTRESS NOTED.
[2018-11-09] VITALS: BP 118/63
--- NOTE | 2018-11-09 00:30 | NUR ---
PT UP TO TOILET WITH STEADY GAIT, NO S/S OF PAIN OR DISTRESS NOTED, V/S FOLLOWS T 98.0 P 82 R 18 B/P 118/63 02 96% ON ROOM AIR. ALL REQUESTED NEEDS ATTENDED AND CALL PATEL IN REACH.
--- NOTE | 2018-11-09 02:28 | NUR ---
Charge nurse Roosevelt GEE made aware , there still no vacancy at any of designated facilities at this time.Will notify charge nurse when a bed is found.
--- NOTE | 2018-11-09 03:30 | NUR ---
PT IN BED ASLEEP NO S/S OF PAIN OR DISTRESS NOTED.
--- NOTE | 2018-11-09 05:29 | NUR ---
PT AWAKE AND AMBULATED TO TOILET, NO S/S OF PAIN OR DISTRESS NOTED. NO BEHAVIORS NOTED THIS SHIFT.
--- NOTE | 2018-11-09 07:25 | NUR ---
RECEIVED BEDSIDE REPORT FROM ICE SKATER NURSE FOR CONTINUITY OF CARE. PATIENT AWAKE AND RESTING ON BED AT THIS TIME. PATIENT IS AAOX1. RESPIRATION EVEN AND UNLABORED ON RA. FLACC 0. NO SIGNS OF DISTRESS NOTED. PATIENT REFUSED IV ACCESS AND WEAR HOSPITAL GOWN. PATIENT WEARING HER OWN CLOTHES AT THIS TIME. PATIENT IS ABLE TO AMBULATE AND CONTINENT. DISCUSSED PLAN OF CARE WITH PATIENT AND PATIENT WAS QUIET AND DID NOT REPLY. SAFETY MEASURES IN PLACE. BED IN LOW POSITION AND CALL LIGHT WITHIN REACH. INSTRUCTED PATIENT TO USE THE CALL LIGHT FOR ANY ASSISTANCE AND PATIENT SILENT.
[2018-11-09 08:00] VITALS: BP 112/54
[2018-11-09] MEDS: ASCORBIC ACID 500 MG TAB PO SCH (08:52)
[2018-11-09] MEDS: FERROUS SULFATE 325 MG TABEC PO SCH (08:53)
[2018-11-09] MEDS: risperiDONE 1 MG TAB PO SCH ×2 (08:53→20:04)
[2018-11-09] MEDS: LACTOBACILLUS RHAMNOSUS GG 1 EACH CAP PO SCH (08:53)
--- NOTE | 2018-11-09 08:53 | NUR ---
ADMINISTERED MEDS PER MD ORDER, PATIENT TOLERATED WELL. MEDS EDUCATION PROVIDED AND REINFORCEMENT NEEDED. PATIENT AWAKE AND RESTING ON BED AT THIS TIME. NO SIGNS OF DISTRESS NOTED. SAFETY MEASURES IN PLACE. BED IN LOW POSITION AND CALL LIGHT WITHIN REACH. INSTRUCTED PATIENT TO USE THE CALL LIGHT FOR ANY ASSISTANCE AND PATIENT NODDED HER HEAD.
[2018-11-09] MEDS: LORazepam 1 MG TAB PO SCH ×3 (08:54→17:12)
--- NOTE | 2018-11-09 09:00 | NUR ---
IONA contacted [employer] Kilnshannan Cisneros [phone]. Per Detective Cisneros, patient has not been listed as a missing person nor did she come up with a [place] [employer]'s License. Detective Cisneros stated that he would conduct additional research and will call SW back if more information is found. SW will follow up.
--- NOTE | 2018-11-09 09:08 | NUR ---
PATIENT ASKED FOR A CAN OF 7-UP SODA, REQUESTED FROM [facility]. PATIENT AWAKE AND LAYING ON BED QUIETLY. NO SIGNS OF DISTRESS NOTED. SAFETY MEASURES IN PLACE. BED IN LOW POSITION AND CALL LIGHT WITHIN REACH. INSTRUCTED PATIENT TO USE THE CALL LIGHT FOR ANY ASSISTANCE AND PATIENT NODDED HER HEAD.
[2018-11-09] MEDS: NACL 0.9% 1,000 ML IV SCH ×2 (09:45→19:45)
--- NOTE | 2018-11-09 10:02 | NUR ---
UNABLE TO ADMINISTER IVF DUE TO PATIENT REFUSED IV ACCESS. EDUCATION PROVIDED TO PATIENT AND PATIENT WAS SITTING ON BED QUIETLY. REINFORCEMENT NEEDED. PATIENT AWAKE AND RESTING ON BED AT THIS TIME. NO SIGNS OF DISTRESS NOTED. SAFETY MEASURES IN PLACE. BED IN LOW POSITION AND CALL LIGHT WITHIN REACH. INSTRUCTED PATIENT TO USE THE CALL LIGHT FOR ANY ASSISTANCE AND PATIENT WAS QUIET.
--- NOTE | 2018-11-09 10:11 | NUR ---
IONA received a phone call from Raine from [facility] [phone]. Per Raine, [phone] needed to be renewed. IONA informed Charge Nurse Nereida. IONA will follow up as needed.
[2018-11-09 10:28] LABS: BASOPHILS % (AUTO) 0.7 % (0.0-2.0); EOSINOPHILS # (AUTO) 0.5 K/uL (0-0.4); EOSINOPHILS % (AUTO) 7.2 % (0.0-4.0); HEMATOCRIT 36.6 % (36-48); HEMOGLOBIN 12.4 g/dL (12.0-16.0); LYMPHOCYTES # (AUTO) 2.2 K/uL (2.5-16.5); LYMPHOCYTES % (AUTO) 30.6 % (20.5-51.1); MEAN CORPUSCULAR HEMOGLOBIN 31 pg (27-31); MEAN CORPUSCULAR HGB CONC 34 g/dL (33-37); MEAN CORPUSCULAR VOLUME 91.4 fL (80-94); MONOCYTES # (AUTO) 0.5 K/uL (0.8-1.0); MONOCYTES % (AUTO) 7.4 % (1.7-9.3); NEUTROPHILS # (AUTO) 3.8 K/uL (1.8-7.7); NEUTROPHILS % (AUTO) 54.1 % (42.2-75.2); PLATELET COUNT (AUTO) 341 K/uL (140-450); WHITE BLOOD COUNT (AUTO) 7.1 K/uL (4.8-10.8)
[2018-11-09 10:53] LABS: ANION GAP 9.3 (8-16); CARBON DIOXIDE 32.1 mmol/L (21-32); CREATININE 0.6 mg/dL (0.6-1.3); POTASSIUM 4.4 mmol/L (3.5-5.1)
[2018-11-09 10:56] LABS: PHOSPHORUS 3.8 mg/dL (2.5-4.9)
--- NOTE | 2018-11-09 11:12 | NUR ---
PATIENT AWAKE AND WATCHING TV ON BED AT THIS TIME. NO SIGNS OF DISTRESS NOTED. SAFETY MEASURES IN PLACE. BED IN LOW POSITION AND CALL LIGHT WITHIN REACH. INSTRUCTED PATIENT TO USE THE CALL LIGHT FOR ANY ASSISTANCE AND PATIENT NODDED HER HEAD.
--- NOTE | 2018-11-09 12:27 | NUR ---
Waiting for re-eval and new 5150 if needed
--- NOTE | 2018-11-09 13:00 | NUR ---
PATIENT AWAKE AND WATCHING TV ON BED AT THIS TIME. MED EDUCATION PROVIDED TO PATIENT, AND PATIENT SAID " I WOULD LIKE SOME PUDDING, JUST LIKE THE ONE FROM TV." PROVIDED A PUDDING REQUEST. NO SIGNS OF DISTRESS NOTED. SAFETY MEASURES IN PLACE. BED IN LOW POSITION AND CALL LIGHT WITHIN REACH. INSTRUCTED PATIENT TO USE THE CALL LIGHT FOR ANY ASSISTANCE AND PATIENT SAID "OK."
--- NOTE | 2018-11-09 15:10 | NUR ---
SVP OPERATIONS ASKED IF PATIENT WOULD LIKE TO TAKE A SHOWER TODAY, PATIENT SAID " NO, MAYBE TOMORROW." [employer]PER[employer] PROVIDED A SPONGE BATH TO PATIENT AND CHANGE ALL LINENS. NO SIGNS OF DISTRESS NOTED. SAFETY MEASURES IN PLACE. BED IN LOW POSITION AND CALL LIGHT WITHIN REACH.
[2018-11-09 16:00] VITALS: BP 102/61
--- NOTE | 2018-11-09 17:12 | NUR ---
ADMINISTERED MED PER MD ORDER, PATIENT TOLERATED WELL. MED EDUCATION PROVIDED TO PATIENT AND REINFORCEMENT NEEDED. PATIENT AWAKE AND RESTING ON BED AT THIS TIME. NO SIGN OF DISTRESS NOTED. SAFETY MEASURES IN PLACE. BED IN LOW POSITION AND CALL LIGHT WITHIN REACH. INSTRUCTED PATIENT TO USE THE CALL LIGHT FOR ANY ASSISTANCE AND PATIENT WAS LOOKING AT ME QUIETLY WITH NO RESPONSE.
--- NOTE | 2018-11-09 19:10 | NUR ---
ENDORSED PATIENT AT BEDSIDE TO SUPERVISOR PLASTICS NURSE FOR CONTINUITY OF CARE. PATIENT IS RESTING ON BED AT THIS TIME. NO SIGNS OF DISTRESS NOTED. PATIENT IS IN STABLE CONDITION. BED IN LOW POSITION AND CALL LIGHT WITHIN REACH.
--- NOTE | 2018-11-09 19:11 | NUR ---
ENDORSED PATIENT AT BEDSIDE FROM AM SHIFT NURSE FOR CONTINUITY OF CARE. PATIENT IS RESTING ON BED AT THIS TIME. NO SIGNS OF DISTRESS NOTED. PATIENT IS IN STABLE CONDITION. BED IN LOW POSITION AND CALL LIGHT WITHIN REACH. Addendum: 11/09/18 at 2131 by Ailyn Woodson RN RECEIVED NOT ENDORSED
--- NOTE | 2018-11-09 21:20 | NUR ---
PT REFUSED AN IVF TO BE CONTINUED AT THIS TIME
--- NOTE | 2018-11-09 21:22 | NUR ---
PT ABLE TO TOLERATE MILK, WATER AND ATE 3 PCS OF CRACKERS
--- NOTE | 2018-11-10 | NUR ---
PT REFUSED VITAL SIGNS, EXPLAINED TO HER THE RISKS AND BENEFITS. PT ACKNOWLEDGED. DR. STOUT AWARE
--- NOTE | 2018-11-10 02:15 | NUR ---
PT SLEEPING, NO COMPLAINTS AT THIS TIME WILL CONTINUE TO MONITOR
--- NOTE | 2018-11-10 05:14 | NUR ---
At this time there are still no vacancy thru out the shift , will endorsed to incoming shift to continue to look for placement , Charge nurse Geraldine GEE made aware.
[2018-11-10] MEDS: NACL 0.9% 1,000 ML IV SCH ×2 (05:45→12:25)
--- NOTE | 2018-11-10 07:31 | NUR ---
RECEIVED REPORT FROM TRAFFIC SIGN SUPERVISOR RN FOR CONTINUITY OF CARE. PT RESTING IN BED. PT REQUESTING BREAKFAST. TOLD PT IT WILL ARRIVE SOON. PT IS AAOX2. PT REFUSES TO TALK TO ME. PT SKIN IS INTACT. NO IV ACCESS DUE TO REFUSING. WILL ROUND FREQUENTLY ON PT. BED IN LOW POSITION, CALL LIGHT WITHIN REACH.
--- NOTE | 2018-11-10 08:09 | NUR ---
PT REFUSING TO HAVE VITAL SIGNS CHECKED. PT IN VISUALLY IN STABLE CONDITION. WILL CONTINUE TO ROUND FREQUENTLY ON PT.
[2018-11-10] MEDS: LACTOBACILLUS RHAMNOSUS GG 1 EACH CAP PO SCH (09:08)
[2018-11-10] MEDS: FERROUS SULFATE 325 MG TABEC PO SCH (09:09)
[2018-11-10] MEDS: ASCORBIC ACID 500 MG TAB PO SCH (09:09)
[2018-11-10] MEDS: LORazepam 1 MG TAB PO SCH ×3 (09:09→17:55)
[2018-11-10] MEDS: risperiDONE 1 MG TAB PO SCH ×2 (09:10→20:11)
--- NOTE | 2018-11-10 09:17 | NUR ---
ADMINISTERED MORNING MEDS TO PT. PT TOLERATED THEM WELL. PT REFUSED HEPARIN INJECTION. PT IN STABLE CONDITION AT THIS TIME. WILL CONTINUE TO ROUND FREQUENTLY ON PT.
--- NOTE | 2018-11-10 09:53 | NUR ---
Recieved report on this pt this am. [facility] will cont to assist with placement as needed
--- NOTE | 2018-11-10 11:24 | NUR ---
PT RESTING IN BED WATCHING TV. ALL NEEDS CURRENTLY MET. WILL CONTINUE TO ROUND FREQUENTLY ON PT.
--- NOTE | 2018-11-10 13:34 | NUR ---
PT RESTING IN BED. ALL NEEDS CURRENTLY MET. WILL CONTINUE TO ROUND FREQUENTLY ON PT.
--- NOTE | 2018-11-10 14:11 | NUR ---
[facility] s/w Madelaine, no beds [facility] s/w Blanche no beds [facility] s/w rosie Dolan fax for review
--- NOTE | 2018-11-10 14:25 | NUR ---
[facility] s/w mar, no beds
[2018-11-10 15:12] LABS: FOLIC ACID 8.4 ng/mL (>3.0)
--- NOTE | 2018-11-10 15:45 | NUR ---
PT SLEEPING IN BED. ALL NEEDS CURRENTLY MET. WILL CONTINUE TO ROUND FREQUENTLY ON PT.
--- NOTE | 2018-11-10 17:37 | NUR ---
PT RESTING IN BED EATING DINNER. ALL NEEDS CURRENTLY MET. WILL CONTINUE TO ROUND FREQUENTLY ON PT.
--- NOTE | 2018-11-10 19:30 | NUR ---
ENDORSED PT TO CARBON SEQUESTRATION PLANT OPERATOR FOR CONTINUITY OF CARE. PT IN STABLE CONDITION AT THIS TIME.
--- NOTE | 2018-11-10 19:31 | NUR ---
RECEIVED PATIENT AT BEDSIDE FROM AM SHIFT NURSE FOR CONTINUITY OF CARE. PT AWAKE, ALERT ORIENTED X 2 .AMBULATORY NO SIGNS OF DISTRESS NOTED. PT NO VERBALIZATION OF SUICIDAL IDEATIONS. PT QUIET, NO EYE CONTACT, ONLY ANSWERS QUESTIONS IF SHE LIKES IN A FEW WORDS. BED IN LOW POSITION AND CALL LIGHT WITHIN REACH.
--- NOTE | 2018-11-10 21:00 | NUR ---
PT REFUSED TO HAVE HER VITALS SIGNS TAKEN. NO IV AND REFUSED IT WELL.DR. STOUT AWARE.
--- NOTE | 2018-11-10 23:30 | NUR ---
PATIENT RESTING WELL IN BED, EYES CLOSED, RIGHT SIDE LATERAL, CHEST RISE AND FALL. NO SIGNS OF DISTRESS NOTED AT THIS TIME. WILL CONTINUE FREQUENT ROUNDS
--- NOTE | 2018-11-11 01:10 | NUR ---
PT CLEANED AND TURNED TO SIDE; APPLIED MYCOSTATIN ON GT SITE Addendum: 11/11/18 at 0128 by Ailyn Woodson RN DELETE NOTE WRONG PT
[2018-11-11] MEDS: NACL 0.9% 1,000 ML IV SCH ×3 (01:45→21:26)
--- NOTE | 2018-11-11 02:19 | NUR ---
PT REFUSED IVF NS DR. STOUT AWARE
--- NOTE | 2018-11-11 04:17 | NUR ---
PATIENT OUT OF BED AMBULATING BACK AND FORTH FROM BED TO SINK, PATIENT CLEANING UP HER SIDE TABLE. ASKED IF EVERYTHING WAS OK AND IF I COULD TAKE HER VITALS, PATIENT CONTINUES TO BE MUTE, NO EYE CONTACT, NO INTERACTION, FLAT AFFECT.
--- NOTE | 2018-11-11 04:25 | NUR ---
PATIENT REQUESTING CRACKERS AND SODA, ONLY ABLE TO GIVE HER PUDDING AND MILK AT THE TIME, TOLD HER SHE COULD HAVE SODA IN THE MORNING WHEN RESTOCKED, PATIENT BECAME VERY FRIENDLY AND TRIED TO FEED THE RN HER PUDDING, ASKED THE PATIENT IF IT WAS OK NOW IF I COULD CHECK HER VITALS, PATIENT ALLOWED. ASKED IF THERE WAS ANY PAIN AND PATIENT GAVE RN A BIG HUG AND HELD HANDS AND STARTED TO INTERACT. PATIENT SHOWED RN SEVERAL PICTURES SHE RHINA, AND EXPLAINED THAT SHE LIVES CLOSE TO THE [place] AND HER AND HER FRIEND ARE TRYING TO FIND A PLACE TO LIVE THAT IS WITHIN WALKING DISTANCE OF THE [place]. PATIENT IS SMILING AND IN BETTER MOOD, SITTING UP AT BEDSIDE EATING SNACKS. DENIES PAIN. WILL CONTINUE TO MONITOR
[2018-11-11 04:30] VITALS: BP 102/75
--- NOTE | 2018-11-11 06:00 | NUR ---
PATIENT RESTING COMFORTABLY IN BED, RIGHT LATERAL, EYES CLOSED. NO SIGNS OF DISTRESS NOTED, IV FLUIDS NOT CONNECTED. FLACC 0
--- NOTE | 2018-11-11 07:11 | NUR ---
Will endorsed to AM shift to continue to look for placement, No vacancy anywhere thru out the prior shift.
--- NOTE | 2018-11-11 07:24 | NUR ---
RECEIVED REPORT FROM CARCASS WASHER RN FOR CONTINUITY OF CARE FROM YESTERDAY. PT IN STABLE CONDITION. EXPLAINED POC TO PT AND PT VERBALIZED UNDERSTANDING OF TEACHING. BED IN LOW POSITION, CALL LIGHT WITHIN REACH.
[2018-11-11] MEDS: FERROUS SULFATE 325 MG TABEC PO SCH (08:45)
[2018-11-11] MEDS: LACTOBACILLUS RHAMNOSUS GG 1 EACH CAP PO SCH (08:45)
[2018-11-11] MEDS: ASCORBIC ACID 500 MG TAB PO SCH (08:45)
[2018-11-11] MEDS: LORazepam 1 MG TAB PO SCH ×3 (08:45→18:14)
[2018-11-11] MEDS: risperiDONE 1 MG TAB PO SCH ×2 (08:45→21:20)
--- NOTE | 2018-11-11 09:24 | NUR ---
ADMINISTERED MORNING MEDS TO PT. PT TOLERATED THEM WELL. HEPARIN INJECTION GIVEN TO PT ON ABDOMEN. PT TOLERATED WELL. PT DENIES PAIN. WILL CONTINUE TO ROUND FREQUENTLY ON PT. BED IN LOW POSITION, CALL LIGHT WITHIN REACH.
--- NOTE | 2018-11-11 11:17 | NUR ---
PT SITTING AT EDGE OF BED. ALL NEEDS CURRENTLY MET. WILL CONTINUE TO MONITOR PT CLOSELY.
--- NOTE | 2018-11-11 11:27 | NUR ---
EXTRUSION ENGINEER note [phone]. Bedside swallow evaluation completed, please see report for details. EXTRUSION ENGINEER provided pt with education regarding purpose of evaluation and rationale for recommendations. Pt verbalized agreement with recommendations at this time. No family present. Recommend: 1) regular textures 2) thin liquids 3) general aspiration precautions (including pt must be fully awake/alert/upright for any PO intakes, stop PO if pt becomes less alert/SOB/coughing) 4) no further EXTRUSION ENGINEER intervention indicated at this time. Physician may reorder if further concerns arise, as appropriate. G-codes: [id number] [id number] JESSICA NOMS level 7 Addendum: 11/11/18 at 1208 by Wandy RAMIREZ EXTRUSION ENGINEER d/w GERARD Riley) prior to and following bedside swallow evaluation completion.
--- NOTE | 2018-11-11 13:18 | NUR ---
PT SITTING AT BEDSIDE CHAIR. ALL NEEDS CURRENTLY MET. GAVE PT SCHEDULED LORAZEPAM. PT TOLERATED WELL. WILL CONTINUE TO ROUND FREQUENTLY ON PT.
--- NOTE | 2018-11-11 15:42 | NUR ---
PT UP AND WALKING AROUND IN ROOM. ALL NEEDS CURRENTLY MET. WILL CONTINUE TO ROUND FREQUENTLY ON PT.
[2018-11-11 16:00] VITALS: BP 98/61
--- NOTE | 2018-11-11 17:45 | NUR ---
PT RESTING IN BED.ALL NEEDS CURRENTLY MET. WILL CONTINUE TO ROUND ON PT.
--- NOTE | 2018-11-11 19:39 | NUR ---
ENDORSED PT TO TRIPE FINISHER FOR CONTINUITY OF CARE. PT IN STABLE CONDITION AT THIS TIME.
--- NOTE | 2018-11-11 19:40 | NUR ---
Received endorsement from AM shift RN. Introduced self, updated board. Patient wants to be called "Uma". No SOB or distress noted, on room air. No IV site. Bed in the lowest position, call light within reach. Initial assessment done. Will continue to monitor.
--- NOTE | 2018-11-11 21:50 | NUR ---
Due meds given, tolerated well.
--- NOTE | 2018-11-11 23:58 | NUR ---
Vitals taken, no distress noted.
[2018-11-12] VITALS: BP 113/55
--- NOTE | 2018-11-12 01:53 | NUR ---
Still no bed vacancies at this time for patient. [facility], spoke with [facility] Priyank Antunez, spoke with [facility], spoke with Marylin Chandler [facility], spoke with Janel CRUZ [facility], spoke with Monika
--- NOTE | 2018-11-12 02:28 | NUR ---
Rounds done; patient resting comfortably.
--- NOTE | 2018-11-12 04:30 | NUR ---
Checks made; patient asleep, visible chest rise and fall noted.
--- NOTE | 2018-11-12 06:40 | NUR ---
Vitals stable, due meds given. Will endorse to AM shift RN for continuity of care.
--- NOTE | 2018-11-12 07:20 | NUR ---
RECEIVED BEDSIDE REPORT FROM ENTERPRISE PROJECT MANAGER RN, KEDAR. PATIENT IS SLEEPING, VISIBLE CHEST RISE, NO SIGNS OF DISTRESS. NO IV ACCESS, PATIENT REMOVES IV ACCESS. BED LOW, CALL LIGHT IN REACH. WILL CONTINUE TO MONITOR.
[2018-11-12] MEDS: NACL 0.9% 1,000 ML IV SCH (07:45)
[2018-11-12 08:00] VITALS: BP 112/70
--- NOTE | 2018-11-12 08:37 | NUR ---
Received report from Patient Ombudsperson. Will continue to look for placement.
[2018-11-12] MEDS: LACTOBACILLUS RHAMNOSUS GG 1 EACH CAP PO SCH (08:43)
[2018-11-12] MEDS: LORazepam 1 MG TAB PO SCH ×3 (08:43→17:00)
[2018-11-12] MEDS: FERROUS SULFATE 325 MG TABEC PO SCH (08:44)
[2018-11-12] MEDS: ASCORBIC ACID 500 MG TAB PO SCH (08:44)
[2018-11-12] MEDS: risperiDONE 1 MG TAB PO SCH ×2 (08:44→20:58)
--- NOTE | 2018-11-12 08:44 | NUR ---
ADMINISTERED SCHEDULED MEDICATIONS WITH EXCEPTION OF VITAMIN C AND LACTOBACILLUS WHICH PATIENT REFUSED. PATIENT TOLERATED ALL OTHER MEDICATIONS WELL AND PREFERS THEM CRUSHED AND GIVEN MIXED IN MILK. I COMPLIED WITH PATIENT REQUEST. BED IS LOW, VITALS ARE STABLE, CALL LIGHT IN REACH. WILL CONTINUE TO MONITOR.
--- NOTE | 2018-11-12 10:23 | NUR ---
s/W Silvia (RN for patient). Patients 5150 expires today. Need new 5150 for further placement. Silvia will fax new [phone] if patient meets criteria
--- NOTE | 2018-11-12 10:42 | NUR ---
Lisa working with Mental Health Department to link pt to one of their programs. A referral form was completed for the [facility] and faxed to the junior network administrator of the program which offers mental health services and housing for patients with dual diagnosis. Lisa will follow-up today with junior network administrator to see if referral was accepted. JAISON Marcus
--- NOTE | 2018-11-12 11:10 | NUR ---
PATIENT WAS STANDING ON BED UNSCREWING LIGHT BULB FROM CEILING. ASKED PATIENT TO STEP DOWN FROM BED, AND SHE DID SO WITHOUT ISSUE. OVERHEAD LIGHT BULB WAS REMOVED FROM SOCKET BY PATIENT. REMOVED THE LIGHT BULB FROM ROOM TO PREVENT BREAKAGE. BED IS LOW, CALL LIGHT IS IN REACH. ASKED PATIENT IF THERE IS ANYTHING I CAN GET FOR HER, SHE REPLIED "A SODA". REQUESTED SODA TO BE INCLUDED ON LUNCH TRAY. WILL CONTINUE TO MONITOR.
--- NOTE | 2018-11-12 11:15 | NUR ---
[facility] s/w Blanche no beds available [facility] s/w Deana no beds [facility] s/w Tasia, not able to accommodate self funded patient out of [facility] no answer, left voicemail [facility] s/w Carlee, packet fax for review when bed is available [facility] s/w Reanna no beds at this time
--- NOTE | 2018-11-12 13:19 | NUR ---
ADMINISTERED SCHEDULED MEDICATIONS. PATIENT TOLERATED THE MEDICATIONS. PATIENT TOOK THE 2 MG ATIVAN PO IN 2 TABLETS AND CHEWED THEM, PATIENT THEN MADE A GRIMACE. I ASKED THE PATIENT IF THE PILLS WERE BITTER AND SHE NODDED "YES". I SUGGESTED SHE SWISH HER MOUTH WITH HER SODA AND SWALLOW TO RINSE MOUTH OF THE POWDER. PATIENT DID SUGGESTED. PATIENT IS CURRENTLY SPEAKING DIRECTLY TO ME WHEN SPOKEN TO AND MAKING EYE CONTACT. WILL CONTINUE TO MONITOR. BED LOW, CALL LIGHT IN REACH.
--- NOTE | 2018-11-12 15:41 | NUR ---
11/12/18 RD FOLLOW UP COMPLETED PLEASE REFER TO NUTRITION ASSESSMENT UNDER CARE ACTIVITY FOR ESTIMATED NUTRITIONAL NEEDS. 1. CONTINUE MECHANICAL SOFT DIET TOLERATED 2. RD TO FOLLOW-UP 5-7 DAYS, LOW RISK [address]ONIFACIO ESQU[address] RD
--- NOTE | 2018-11-12 16:00 | NUR ---
PATIENT REFUSED 1600 VITALS. PRETENDED TO SLEEP, AND DID NOT ALLOW ME TO LIFT ARM PATIENT HAS BEEN STABLE AND COOPERATIVE ALL DAY. WILL TRY AGAIN LATER.
--- NOTE | 2018-11-12 18:15 | NUR ---
PATIENT RESTING IN BED. NO SIGNS OF DISTRESS. BED LOW, CALL LIGHT IN REACH.
--- NOTE | 2018-11-12 19:35 | NUR ---
ENDORSED PATIENT TO VACUUM CLOSING MACHINE OPERATOR RN IN STABLE CONDITION.
--- NOTE | 2018-11-12 19:36 | NUR ---
REPORT RECEIVED FROM AM NURSE AT BEDSIDE. PT IN STABLE CONDITION. PT HAS NO COMPLAINTS OF PAIN. NO SOB. AFEBRILE. NO IV ACCESS AT THIS TIME. SKIN WARM, DRY, AND INTACT WITH NO OPEN WOUNDS. BED LOCKED IN LOW POSITION. CALL PATEL WITHIN REACH. SAFETY PRECAUTION IN PLACE. ALL NEEDS MET AT THIS TIME.
--- NOTE | 2018-11-12 20:58 | NUR ---
RISPERDAL GIVEN PO. HEPARIN GIVEN SUBQ. PT TOLERATED WELL.
--- NOTE | 2018-11-12 22:05 | NUR ---
PT UP IN BED AWAKE AND ALERT. NO S/S OF DISTRESS NOTED. WILL CONTINUE TO MONITOR.
--- NOTE | 2018-11-12 23:35 | NUR ---
PT SLEEPING COMFORTABLY IN BED BUT AROUSABLE. NO S/S OF DISTRESS NOTED. NO COMPLAINTS OF PAIN. NO SOB. AFEBRILE. WILL CONTINUE TO MONITOR.
[2018-11-13] VITALS: BP 106/62
--- NOTE | 2018-11-13 00:55 | NUR ---
PT SLEEPING COMFORTABLY IN BED BUT AROUSABLE. NO S/S OF DISTRESS NOTED. NO COMPLAINTS OF PAIN. NO SOB. AFEBRILE. WILL CONTINUE TO MONITOR.
--- NOTE | 2018-11-13 02:30 | NUR ---
PT SLEEPING COMFORTABLY IN BED BUT AROUSABLE. NO S/S OF DISTRESS NOTED. RESPIRATIONS EVEN, UNLABORED, AND WNL. WILL CONTINUE TO MONITOR.
--- NOTE | 2018-11-13 04:15 | NUR ---
PT SLEEPING COMFORTABLY BUT AROUSABLE. NO S/S OF DISTRESS NOTED. RESPIRATIONS EVEN, UNLABORED, AND WNL. WILL CONTINUE TO MONITOR.
--- NOTE | 2018-11-13 06:00 | NUR ---
PT AWAKE AND ALERT WALKING AROUND IN HER ROOM. PT ASKS FOR A SPECIFIC FOOD ORDERED. WILL SEE IF [facility] CAN SUPPLY. WILL CONTINUE TO MONITOR.
--- NOTE | 2018-11-13 07:10 | NUR ---
RECEIVED REPORT FORM GERIATRIC PHYSICAL THERAPIST RN, CONNOR. PATIENT IS SITTING UP IN BED, NO SIGNS OF DISTRESS NOTED ON RA. PATIENT SMILED AND REPLIED WHEN I SPOKE TO HER. BED IS LOW, CALL LIGHT IN REACH. WILL CONTINUE TO MONITOR
[2018-11-13 08:00] VITALS: BP 121/69
[2018-11-13] MEDS: FERROUS SULFATE 325 MG TABEC PO SCH (08:56)
[2018-11-13] MEDS: LORazepam 1 MG TAB PO SCH ×3 (08:56→17:49)
[2018-11-13] MEDS: ASCORBIC ACID 500 MG TAB PO SCH (08:57)
[2018-11-13] MEDS: risperiDONE 1 MG TAB PO SCH ×2 (08:57→21:17)
--- NOTE | 2018-11-13 09:08 | NUR ---
ADMINISTERED SCHEDULED MEDICATIONS WITH THE EXCEPTION HEPARIN. PATIENT IS AMBULATING WELL AND LABS HAVE NOT BEEN DRAWN SINCE 11/09. PATIENT TAKES MEDICATION CRUSHED ALLOW SHE CAN SWALLOW, THIS IS HER PREFERENCE. MONITORED PATIENT, ENSURED ALL MEDS WERE TAKEN, PATIENT TOLERATED WELL AND WAS COMPLIANT. PATIENT IS IN PLEASANT MOOD AND SPEAKING DIRECTLY TO STAFF. NO SIGNS OF DISTRESS ON RA. BED IS LOW, CALL LIGHT IS IN REACH. WILL CONTINUE TO MONITOR.
--- NOTE | 2018-11-13 11:30 | NUR ---
PATIENT RESTING IN BED, NO SIGNS OF DISTRESS. PATIENT IS DRAWING. BED IS LOW, CALL LIGHT IN REACH. ALL NEEDS MET AT THIS TIME.
--- NOTE | 2018-11-13 13:45 | NUR ---
PATIENT READING IN BED. CALM, COOPERATIVE. NO SIGNS OF DISTRESS ON RA. BED LOW, CALL LIGHT IN REACH.
[2018-11-13 16:00] VITALS: BP 107/72
--- NOTE | 2018-11-13 16:00 | NUR ---
VITALS STABLE, BED LOW CALL LIGHT IN REACH. PATIENT RESTING IN BED NO SIGNS OF DISTRESS NO C/O PAIN. ALL NEEDS MET.
--- NOTE | 2018-11-13 16:33 | NUR ---
Follow-up call made to Francine Lombardi, senior linux administrator for the [facility] in [place]. The referral was accepted, next step is for mental health to send a product support representative to meet with the pt at the hospital. If patient is agreeable for services, they will accept the case. [facility] requested for the hospital to find a room & board for the patient pay for two months while they finish linking the patient to all their services. Sw contacted [facility] and spoke to senior linux administrator Naveen Odom who stated he has female beds available and will be able to accept this patient. Fees for r&b $700/month includes 3 meals and laundry services. Lisa will continue following up as needed. JAISON Marcus
--- NOTE | 2018-11-13 17:50 | NUR ---
ADMINISTERED SCHEDULED MEDICATIONS CRUSHED IN APPLE JUICE. PATIENT TOLERATED WELL. PATIENT RESTING IN BED, TALKATIVE AND ASKING QUESTIONS ABOUT HER CONDITION UPON ARRIVAL. PROVIDED PATIENT THE INFORMATION REQUESTED. PATIENT IS CALM AND COOPERATIVE. BED LOW CALL LIGHT IN REACH.
--- NOTE | 2018-11-13 19:15 | NUR ---
ENDORSED PATIENT TO CLAY MINER RN, RAVIES IN STABLE CONDITION.
--- NOTE | 2018-11-13 19:25 | NUR ---
RECEIVED BEDSIDE CHANGE OF SHIFT REPORT FROM DAY SHIFT NURSE . PATIENT AWAKE, ALERT, AND RESTING ON BED AT THIS TIME. PATIENT SPEAKS IN FULL COHERENT SENTENCES. PATIENT IS A/OX4. REGULAR, UNLABORED RESPIRATIONS WITH CLEAR LUNG SOUNDS THROUGHOUT ALL AREAS. REGULAR HEART RHYTHM WITH S1 AND S2 SOUND NOTED. NO SIGNS OF ACUTE DISTRESS NOTED. PATIENT STILL REFUSED IV ACCESS, PATIENT IS ABLE TO AMBULATE AND CONTINENT. DRY IS DRY, WARM, AND INTACT. BED IN LOW POSITION AND CALL LIGHT WITHIN REACH.
--- NOTE | 2018-11-13 21:40 | NUR ---
GROUNDS WORKER AT BEDSIDE DRAWING BLOOD FOR ORDERED LABS. VITAL SIGNS STABLE, AND PATIENT CALM/COOPERATIVE AND NO SIGNS OF ACUTE DISTRESS AT THIS TIME
--- NOTE | 2018-11-13 21:46 | NUR ---
HEPARIN IS BEING HELD UNTIL CBC/BMP LAB RESULTS COME BACK.
[2018-11-13 22:07] LABS: BASOPHILS % (AUTO) 0.5 % (0.0-2.0); EOSINOPHILS # (AUTO) 0.3 K/uL (0-0.4); EOSINOPHILS % (AUTO) 3.2 % (0.0-4.0); HEMATOCRIT 35.1 % (36-48); HEMOGLOBIN 11.9 g/dL (12.0-16.0); LYMPHOCYTES # (AUTO) 2.8 K/uL (2.5-16.5); LYMPHOCYTES % (AUTO) 32.1 % (20.5-51.1); MEAN CORPUSCULAR HEMOGLOBIN 31 pg (27-31); MEAN CORPUSCULAR HGB CONC 34 g/dL (33-37); MEAN CORPUSCULAR VOLUME 91.1 fL (80-94); MONOCYTES # (AUTO) 0.6 K/uL (0.8-1.0); MONOCYTES % (AUTO) 7.2 % (1.7-9.3); PLATELET COUNT (AUTO) 350 K/uL (140-450); RED BLOOD CELL COUNT(AUTO) 3.85 MIL/uL (4.20-5.40); RED CELL DISTRIBUTION WIDTH 13.2 % (11.6-13.7); WHITE BLOOD COUNT (AUTO) 8.7 K/uL (4.8-10.8)
--- NOTE | 2018-11-13 22:30 | NUR ---
PATIENT COMPLAINED OF BEING HUNGRY. GAVE TUNA SANDWICH AND APPLE SAUCE. WILL CONTINUE TO MONITOR.
[2018-11-14] VITALS: BP 123/75
--- NOTE | 2018-11-14 | NUR ---
VITALS WERE TAKEN. PATIENT IN STABLE CONDITION. CALL LIGHT WITHIN REACH. WILL CONTINUE TO MONITOR.
--- NOTE | 2018-11-14 02:00 | NUR ---
CHECKED PATIENT. PATIENT SLEEPING RESPIRATION EVEN UNLABORED ON ROOM AIR. NO DISTRESS NOTED. CALL LIGHT WITHIN REACH. WILL CONTINUE TO MONITOR.
--- NOTE | 2018-11-14 03:42 | NUR ---
PATIENT SLEEPING COMFORTABLY IN BED BUT AROUSABLE. NO SIGNS OF ACUTE DISTRESS NOTED. RESPIRATIONS EVEN, UNLABORED, AND WNL. WILL CONTINUE TO MONITOR.
--- NOTE | 2018-11-14 07:17 | NUR ---
ENDORSED PATIENT TO PETROLEUM LABORATORY TECHNICIAN RN, CHARLEY IN STABLE CONDITION
[2018-11-14] MEDS: FERROUS SULFATE 325 MG TABEC PO SCH (08:41)
[2018-11-14] MEDS: LORazepam 1 MG TAB PO SCH ×3 (08:41→17:33)
[2018-11-14] MEDS: risperiDONE 1 MG TAB PO SCH ×2 (08:42→20:31)
[2018-11-14] MEDS: ASCORBIC ACID 500 MG TAB PO SCH (08:42)
[2018-11-14 08:45] VITALS: BP 111/67
[2018-11-14] MEDS ORDERED: risperiDONE 1 MG TAB PO SCH (09:12)
--- NOTE | 2018-11-14 09:43 | NUR ---
RECEIVED HAND OFF REPORT FROM PM RN PT APPEARS STABLE AND IN NO APPARENT DISTRESS. ALL SAFETY MEASURES ARE IN PLACE WILL CONTINUE TO MONITOR.
--- NOTE | 2018-11-14 09:51 | NUR ---
GAVE 1 TABLET RISPERDONE NOW INSTEAD OF 2 TABLETS ALREADY ADMINISTERED 1 TABLET EARLIER BEFORE ORDER WAS CHANGED
--- NOTE | 2018-11-14 12:43 | NUR ---
FREQUENT ROUNDING ON PT PT APPEARS STABLE AND IN NO APPARENT DISTRESS. ALL SAFETY MEASURES ARE IN PLACE. WILL CONTINUE TO MONITOR
--- NOTE | 2018-11-14 13:47 | NUR ---
FREQUENT ROUNDING ON PT PT APPEARS STABLE AND IN NO APPARENT DISTRESS. ALL SAFETY MEASURES ARE IN PLACE WILL CONTINUE TO MONITOR
--- NOTE | 2018-11-14 15:53 | NUR ---
FREQUENT ROUNDING ON PT PT APPEARS STABLE AND IN NO APPARENT DISTRESS. ALL SAFETY MEASURES ARE IN PLACE AND WILL CONTINUE TO MONITOR
[2018-11-14 16:45] VITALS: BP 99/54
--- NOTE | 2018-11-14 17:56 | NUR ---
FREQUENT ROUNDING ON PT PT APPEARS STABLE AND IN NO APPARENT DISTRESS. ALL SAFETY MEASURES ARE IN PLACE WILL CONTINUE TO MONITOR
--- NOTE | 2018-11-14 19:17 | NUR ---
ENDORSED TO PM RN PT STABLE
--- NOTE | 2018-11-14 19:18 | NUR ---
RECEIVED BEDSIDE REPORT FROM AM SHIFT. PT AWAKE, ALERT, O X 3, PT COMMUNICATING IN SHORT SENTENCES. FLEETING EYE CONTACT. ALL SAFETY MEASURES ARE IN PLACE WILL CONTINUE TO MONITOR.
--- NOTE | 2018-11-14 19:45 | NUR ---
GIVEN PT SODA AND A SANDWICH, PT HAS GOOD APPETITE, WILL CONTINUE TO MONITOR.
--- NOTE | 2018-11-14 20:32 | NUR ---
PT MEDICATED, PT EXHIBITED SOME EYE CONTACT, AND CONTINUED TO HAVE SHORT SENTENCE REQUESTS WITH NURSE. PT EXHIBITING GOOD BEHAVIOR
--- NOTE | 2018-11-14 20:39 | NUR ---
Change of shift report given will continue to monitor notes
--- NOTE | 2018-11-14 20:40 | NUR ---
RECEIVED BEDSIDE REPORT FROM AM SHIFT. PT AWAKE, ALERT, O X 3, PT COMMUNICATING IN SHORT SENTENCES. FLEETING EYE CONTACT. ALL SAFETY MEASURES ARE IN PLACE WILL CONTINUE TO MONITOR. Addendum: 11/15/18 at 0306 by Ailyn Woodson RN PLS DELETE NOTE. WRONG TIME
[2018-11-15] VITALS: BP 102/57
--- NOTE | 2018-11-15 03:00 | NUR ---
PT WENT TO THE BATHROOM AMBULATORY W/ STEADY GAIT X 3 VOIDS
[2018-11-15 03:47] VITALS: BP 103/58
--- NOTE | 2018-11-15 06:49 | NUR ---
PT ASLEEP, BUT EASILY AROUSABLE, PT HAS NO SIGNS AND SX'S OF AGGRESSION; NO SUICIDAL THOUGHT AT THIS TIME. WILL ENDORSE TO NEXT SHIFT.
--- NOTE | 2018-11-15 07:36 | NUR ---
RECEIVED HAND OFF REPORT FROM PM RN PT AWAKE IN BED PT APPEARS STABLE AND IN NO APPARENT DISTRESS. ALL SAFETY MEASURES ARE IN PLACE WILL CONTINUE TO MONITOR
[2018-11-15 08:25] VITALS: BP 102/69
[2018-11-15] MEDS: FERROUS SULFATE 325 MG TABEC PO SCH (08:45)
[2018-11-15] MEDS: ASCORBIC ACID 500 MG TAB PO SCH (08:46)
[2018-11-15] MEDS: risperiDONE 1 MG TAB PO SCH ×2 (08:46→21:07)
--- NOTE | 2018-11-15 09:45 | NUR ---
FREQUENT ROUNDING ON PT PT AWAKE IN BED PT APPEARS STABLE AND IN NO APPARENT DISTRESS. ALL SAFETY MEASURES ARE IN PLACE WILL CONTINUE TO MONITOR.
--- NOTE | 2018-11-15 11:23 | NUR ---
FREQUENT ROUNDING ON PT PT APPEARS STABLE AND IN NO APPARENT DISTRESS ALL SAFETY MEASURES ARE IN PLACE WILL CONTINUE TO MONITOR
--- NOTE | 2018-11-15 14:36 | NUR ---
FREQUENT ROUNDING ON PT PT APPEARS STABLE AND IN NO APPARENT DISTRESS. ALL SAFETY MEASURES ARE IN PLACE
[2018-11-15 16:00] VITALS: BP 91/58
--- NOTE | 2018-11-15 16:55 | NUR ---
ENDORSED PT TO RAIN MCCABE RN PT AWAKE IN BED. PT APPEARS STABLE AND IN NO APPARENT DISTRESS. ALL SAFETY MEASURES ARE IN PLACE WILL CONTINUE TO MONITOR
--- NOTE | 2018-11-15 16:56 | NUR ---
RECEIVED REPORT FROM DAY SHIFT NURSE ADELINE FOR CONTINUITY OF CARE. PT IN STABLE CONDITION. RESPIRATIONS EVEN AND UNLABORED. BED IN LOW POSITION. CALL LIGHT AT BEDSIDE. WILL CONTINUE TO MONITOR.
--- NOTE | 2018-11-15 18:05 | NUR ---
PT SITTING AT SIDE OF BED EATING DINNER IN STABLE CONDITION. BED IN LOW POSITION. CALL LIGHT AT BEDSIDE.
--- NOTE | 2018-11-15 19:25 | NUR ---
GAVE REPORT TO DOUBLE ENDING MACHINE OPERATOR NURSE FOR CONTINUITY OF CARE. PT IN STABLE CONDITION.
--- NOTE | 2018-11-15 19:26 | NUR ---
RECEIVED BEDSIDE REPORT FROM DAY SHIFT NURSE RAIN RN, PT STABLE, NO DISTRESS NOTED, PT AMBULATING IN ROOM, PT HAS NO IV ACCESS, NO C/O PAIN, INITIAL ASSESSMENT DONE, ALL SAFETY PRECAUTION MET, CALL LIGHT WITHIN REACH, WILL CONTINUE TO MONITOR.
--- NOTE | 2018-11-15 21:11 | NUR ---
DUE MEDICATION GIVEN, PT TOLERATED WELL, NO DISTRESS NOTED, CALL LIGHT WITHIN REACH, WILL CONTINUE TO MONITOR.
--- NOTE | 2018-11-15 23:40 | NUR ---
CHECKED ON PT, PT SITTING ON BEDSIDE CHAIR, NO DISTRESS NOTED, V/S TAKEN, WITHIN NORMAL LIMIT, PT RESTING, CALL LIGHT WITHIN REACH, WILL CONTINUE TO MONITOR.
[2018-11-16] VITALS: BP 103/65
--- NOTE | 2018-11-16 04:43 | NUR ---
Psych eval in the AM , per Rose Mary GEE
--- NOTE | 2018-11-16 07:23 | NUR ---
ENDORSED PT TO DAY SHIFT NURSE ERICA GEE, PT STABLE, NO DISTRESS NOTED, CALL LIGHT WITHIN REACH.
--- NOTE | 2018-11-16 07:24 | NUR ---
RECEIVED REPORT FROM SALES RECRUITER RN, MARIO. JENNIFER HAYDEN SLEEPING. VISIBLE CHEST RISE, NO DISTRESS ON RA. BED IS LOW AND CALL LIGHT IS IN REACH. WILL CONTINUE TO MONITOR.
[2018-11-16 08:00] VITALS: BP 103/48
[2018-11-16] MEDS: risperiDONE 1 MG TAB PO SCH ×2 (10:29→20:50)
[2018-11-16] MEDS: FERROUS SULFATE 325 MG TABEC PO SCH (10:29)
[2018-11-16] MEDS: ASCORBIC ACID 500 MG TAB PO SCH (10:30)
--- NOTE | 2018-11-16 10:38 | NUR ---
ADMINISTERED SCHEDULED MEDICATIONS. PATIENT TOLERATED WELL. PATIENT IS RESTING IN BED. NO SIGNS OF DISTRESS ON RA. BED IS LOW, CALL LIGHT IS IN REACH. WILL CONTINUE TO MONITOR.
--- NOTE | 2018-11-16 13:04 | NUR ---
PATIENT RESTING IN BED, NO SIGNS OF DISTRESS ON RA. ALL NEEDS MET AT THIS TIME. BED LOW, CALL LIGHT IN REACH. WILL CONTINUE TO MONITOR.
--- NOTE | 2018-11-16 14:08 | NUR ---
S/W SS Darian. States that they are waiting for [facility] to talk to patient for placement at a B/C home. Stated to Darian that once appointment is through and patient is still needing placement for psych to let Call Center know.
--- NOTE | 2018-11-16 15:25 | NUR ---
PATIENT SLEEPING. NO SIGNS OF DISTRESS. BED IS LOW, CALL LIGHT IN REACH.
[2018-11-16 16:00] VITALS: BP 107/63
--- NOTE | 2018-11-16 17:15 | NUR ---
PATIENT AWAKE, SITTING IN BED, WATCHING TV. NO DISTRESS NOTED. PROVIDED A SODA PER PATIENT REQUEST.
--- NOTE | 2018-11-16 19:29 | NUR ---
ENDORSED PATIENT TO CIGAR MAKING MACHINE SUPERVISOR RN, CHARLEY, IN STABLE CONDITION.
--- NOTE | 2018-11-16 19:30 | NUR ---
RECEIVED BEDSIDE REPORT FROM DAY SHIFT NURSE. PATIENT IS AWAKE, ALERT, AND COOPERATIVE. RESPIRATION EVEN UNLABORED ON ROOM AIR. NO DISTRESS NOTED. SKIN IS WARM AND DRY. DENIES PAIN. PLAN OF CARE WAS DISCUSSED. ALL SAFETY MEASURES IN PLACE. BED IS AT LOW POSITION. WILL CONTINUE TO MONITOR.
--- NOTE | 2018-11-16 20:00 | NUR ---
INITIAL ASSESSMENT DONE. VITALS WERE TAKEN. NO DISTRESS NOTED. WILL CONTINUE TO MONITOR.
--- NOTE | 2018-11-16 21:00 | NUR ---
ALL SCHEDULED MEDS WERE GIVEN PER ORDER. NO ASE NOTED. WILL CONTINUE TO MONITOR.
--- NOTE | 2018-11-16 22:41 | NUR ---
CHECKED PATIENT. PATIENT IN BED SLEEPING RESPIRATION EVEN UNLABORED ON ROOM AIR. NO DISTRESS NOTED. WILL CONTINUE TO MONITOR.
[2018-11-17] VITALS: BP 92/59
--- NOTE | 2018-11-17 | NUR ---
VITALS WERE TAKEN. PATIENT IN STABLE CONDITION. NO DISTRESS NOTED. WILL CONTINUE TO MONITOR.
--- NOTE | 2018-11-17 01:58 | NUR ---
CHECKED PATIENT. PATIENT SLEEPING RESPIRATION EVEN UNLABORED ON ROOM AIR. NO DISTRESS NOTED. WILL CONTINUE TO MONITOR.
--- NOTE | 2018-11-17 04:00 | NUR ---
CHECKED PATIENT. PATIENT SLEEPING RESPIRATION EVEN UNLABORED ON ROOM AIR. NO DISTRESS NOTED. WILL CONTINUE TO MONITOR.
--- NOTE | 2018-11-17 07:08 | NUR ---
ENDORSED PATIENT TO DAY SHIFT NURSE. PATIENT IN STABLE CONDITION.
--- NOTE | 2018-11-17 07:09 | NUR ---
RECEIVED REPORT FROM EXPLOSIVE OPERATOR SUPERVISOR NURSE. PATIENT LYING DOWN IN BED SLEEPING, AROUSABLE BY VOICE. NO DISTRESS NOTED. AAOX2, CALM, COOPERATIVE, SKIN COLOR APPROPRIATE TO ETHNICITY, WARM TO TOUCH. SKIN INTACT. RESPIRATIONS EVEN, UNLABORED, ON ROOM AIR. REVIEWED PLAN OF CARE WITH PATIENT. REINFORCEMENT NEEDED. SAFETY MEASURES IN PLACE, CALL LIGHT WITHIN REACH. WILL CONTINUE TO MONITOR.
[2018-11-17 08:00] VITALS: BP 108/66
[2018-11-17] MEDS: FERROUS SULFATE 325 MG TABEC PO SCH (09:45)
[2018-11-17] MEDS: ASCORBIC ACID 500 MG TAB PO SCH (09:45)
[2018-11-17] MEDS: risperiDONE 1 MG TAB PO SCH ×2 (09:45→20:50)
--- NOTE | 2018-11-17 09:48 | NUR ---
PATIENT SITTING DOWN IN BED COMFORTABLY. NO DISTRESS NOTED. SCHEDULED MEDICATIONS DUE GIVEN. HEPARIN NOT GIVEN PATIENT REFUSED AT THIS TIME. PATIENT AMBULATORY. WILL CONTINUE TO MONITOR.
--- NOTE | 2018-11-17 11:30 | NUR ---
PATIENT SITTING IN BED. NO DISTRESS NOTED. CONDITION UNCHANGED. WILL CONTINUE TO MONITOR.
--- NOTE | 2018-11-17 11:52 | NUR ---
S/W Darian from . Stated that [facility] is coming in today to talk with patient regarding placement for B/C. Will wait for outcome of appointment.
--- NOTE | 2018-11-17 13:15 | NUR ---
PATIENT SITTING AT BEDSIDE CHAIR WATCHING TV. CONDITION UNCHANGED. WILL CONTINUE TO MONITOR.
--- NOTE | 2018-11-17 15:30 | NUR ---
PATIENT SITTING AT BEDSIDE CHAIR. CONDITION UNCHANGED. WILL CONTINUE TO MONITOR.
[2018-11-17 16:00] VITALS: BP 119/67
--- NOTE | 2018-11-17 17:30 | NUR ---
PATIENT SITTING IN BED READING A MAGAZINE. NO DISTRESS NOTED. CONDITION UNCHANGED. WILL CONTINUE TO MONITOR.
--- NOTE | 2018-11-17 19:30 | NUR ---
GAVE REPORT TO AMMONIUM SULFATE OPERATOR NURSE FOR CONTINUITY OF CARE. PATIENT IN STABLE CONDITION.
--- NOTE | 2018-11-17 19:30 | NUR ---
RECEIVED PT IN STABLE CONDITION FROM AM NURSE. PT IS AWAKE,ALERT ,ORIENTED X2. WITH PERIODS OF CONFUSION. JUST GOT UP TO THE RESTROOM. NO S/S OF ANY DISCOMFORT NOR PAIN NOTED. NO IV ACCESS-PT REFUSED AND MD AWARE. BED ON LOW POSITION. FREQ CHECK NEEDED. SIDE RAILS UP X2. CALL LIGHT PLACED WITHIN REACH. WILL CONTINUE TO MONITOR.
--- NOTE | 2018-11-17 20:50 | NUR ---
PT ABLE TO TAKE ALL DUE MEDS AT THIS TIME.
--- NOTE | 2018-11-17 22:00 | NUR ---
MADE ROUNDS. PT ASLEEP. NO S/S OF ANY DISCOMFORT NOTED.
--- NOTE | 2018-11-17 23:00 | NUR ---
MADE ROUNDS. SLEEPING. NO S/S OF ANY DISCOMFORT NOTED.
--- NOTE | 2018-11-18 00:45 | NUR ---
PT REFUSED TO HAVE VITAL SIGNS TAKEN AT THIS TIME.
--- NOTE | 2018-11-18 02:00 | NUR ---
MADE ROUNDS. PT IS ASLEEP. NO S/S/ OF ANY DISCOMFORT NOTEE. WILL CONTINUE TO MONITOR.
--- NOTE | 2018-11-18 04:30 | NUR ---
PT STILL ASLEEP. NO S/S OF ANY DISTRESS NOTED. WILL CONTINUE TO MONITOR.
--- NOTE | 2018-11-18 06:25 | NUR ---
PT STILL ASLEEP. NO S/S OF ANY PAIN NOTED.
--- NOTE | 2018-11-18 07:15 | NUR ---
ENDORSED PT IN STABLE CONDITION TO M NURSE.
--- NOTE | 2018-11-18 07:16 | NUR ---
RECEIVED REPORT FROM HOUSING MANAGER NURSE. PATIENT LYING DOWN IN BED SLEEPING, AROUSABLE BY VOICE. NO DISTRESS NOTED. AAOX2, CALM, COOPERATIVE, SKIN COLOR APPROPRIATE TO ETHNICITY, WARM TO TOUCH. SKIN INTACT. NO IV SITE PATIENT REFUSES. MD ALREADY AWARE. RESPIRATIONS EVEN, UNLABORED, ON ROOM AIR. REVIEWED PLAN OF CARE WITH PATIENT. REINFORCEMENT NEEDED. SAFETY MEASURES IN PLACE, CALL LIGHT WITHIN REACH. WILL CONTINUE TO MONITOR.
[2018-11-18 08:00] VITALS: BP 120/70
--- NOTE | 2018-11-18 08:11 | NUR ---
LATE ENTRY FOR 11/17/18 [facility] representatives met with pt to discuss services available through [facility]. Lisa Whittington and security present during this meeting as pt feel comfortable with their presence. Patient was receptive to the information presented and when asked if she wanted to accept those services she requested sometime to think about it. mental health representatives stepped out of the room and waited for about 15 min. During this time, the pt laid down and closed her eyes refusing to accept/decline services/program offered. Pt will be d/c today/tomorrow to [facility], placement confirmed with senior backup administrator Naveen Odom . [facility] will pay for two months of housing and Mental Health will follow-up with pt at the r&b to hopefully sign her up for their services. Nursing staff and administration aware of plan. Felicia Morrison, [facility] Ext [phone] Addendum: 11/18/18 at 1737 by Felicia Morrison 30-day medication filled, room and board approved; senior backup administrator Naveen Odom will pickers material handlers the patient when ready. Social Workers to inform Francine Gallego [phone] when the pt is discharge. Felicia Morirson, [facility] Ext [phone]
[2018-11-18] MEDS: risperiDONE 1 MG TAB PO SCH ×2 (09:50→21:00)
[2018-11-18] MEDS: ASCORBIC ACID 500 MG TAB PO SCH (09:50)
[2018-11-18] MEDS: FERROUS SULFATE 325 MG TABEC PO SCH (09:50)
--- NOTE | 2018-11-18 10:02 | NUR ---
PATIENT SITTING DOWN IN BEDSIDE CHAIR. NO DISTRESS NOTED. CONDITION UNCHANGED. SCHEDULED MEDICATIONS DUE GIVEN. WILL CONTINUE TO MONITOR.
--- NOTE | 2018-11-18 12:01 | NUR ---
PATIENT TOOK A SHOWER WITH SEAM PRESS OPERATOR ASSISTANCE. WILL CONTINUE TO MONITOR.
--- NOTE | 2018-11-18 15:08 | NUR ---
PATIENT SITTING AT BEDSIDE CHAIR. NO DISTRESS NOTED. CONDITION UNCHANGED. WILL CONTINUE TO MONITOR.
--- NOTE | 2018-11-18 19:25 | NUR ---
RECEIVED BEDSIDE REPORT FROM DAY SHIFT NURSE. PATIENT IS AWAKE, REFUSED TO TALK. RESPIRATION EVEN UNLABORED ON ROOM AIR. SKIN IS WARM AND DRY. PLAN OF CARE WAS DISCUSSED. ALL SAFETY MEASURES IN PLACE. BED IS AT LOW POSITION. CALL LIGHT WITHIN REACH. WILL CONTINUE TO MONITOR.
--- NOTE | 2018-11-18 20:00 | NUR ---
INITIAL ASSESSMENT DONE. PATIENT REFUSED TO INTERACT AND ANSWER QUESTION. WILL CONTINUE TO MONITOR.
--- NOTE | 2018-11-18 21:18 | NUR ---
PATIENT UNCOOPERATIVE, REFUSED TO TAKE MEDS. EDUCATED THE RISK AND BENEFITS OF IT X2 STILL REFUSED.
--- NOTE | 2018-11-18 21:20 | NUR ---
NOTIFY DR. STOUT (RESIDENT) REGARDING PATIENT REFUSING MEDS. NO NEW ORDERS RECEIVED. WILL CONTINUE TO MONITOR.
--- NOTE | 2018-11-18 22:30 | NUR ---
PATIENT IN BED SLEEPING RESPIRATION EVEN UNLABORED ON ROOM AIR. NO DISTRESS NOTED. WILL CONTINUE TO MONITOR.
--- NOTE | 2018-11-19 | NUR ---
PATIENT REFUSED VITALS TO BE TAKEN. EDUCATED THE RISK AND BENEFITS X2 STILL REFUSED. WILL CONTINUE TO MONITOR.
--- NOTE | 2018-11-19 02:00 | NUR ---
PATIENT SLEEPING RESPIRATION EVEN UNLABORED ON ROOM AIR. NO DISTRESS NOTED. WILL CONTINUE TO MONITOR.
--- NOTE | 2018-11-19 04:00 | NUR ---
CHECKED PATIENT. PATIENT IN BED SLEEPING RESPIRATION EVEN UNLABORED ON ROOM AIR. NO DISTRESS NOTED. WILL CONTINUE TO MONITOR.
--- NOTE | 2018-11-19 07:13 | NUR ---
ENDORSED PATIENT TO DAY SHIFT NURSE. PATIENT IN STABLE CONDITION.
--- NOTE | 2018-11-19 07:14 | NUR ---
PT RECEIVED FROM NIGHT NURSE KISSES PT SLEEPING IN BED. PT AWOKEN WITH VERBAL STIMULI. NO IV OR FLUIDS AT THIS TIME. NO SIGNS OF ACUTE DISTRESS AT THIS TIME. WILL CONTINUE TO ASSESS FOR CHANGES IN CONDITION.
[2018-11-19 08:00] VITALS: BP 119/61
[2018-11-19] MEDS: FERROUS SULFATE 325 MG TABEC PO SCH (08:54)
[2018-11-19] MEDS: risperiDONE 1 MG TAB PO SCH (08:54)
[2018-11-19] MEDS: ASCORBIC ACID 500 MG TAB PO SCH (08:55)
[2018-11-19] MEDS ORDERED: RIS1 PO (09:51)
--- NOTE | 2018-11-19 10:00 | NUR ---
PT SLEEPING IN BED. NO SIGNS OF ACUTE DISTRESS AT THIS TIME. WILL CONTINUE TO ASSESS FOR CHANGES IN CONDITION.
--- NOTE | 2018-11-19 10:53 | NUR ---
Left voicemail to Bryant ([facility]) to f/u on discharge plans.
--- NOTE | 2018-11-19 14:44 | NUR ---
Spoke to Felicia from case management to f/u on discharge plans. Per Felicia, still awaiting confirmation from admin & will be contacting primary nurse when completed. Pt currently sitting up at edge of bed, watching TV. No signs of distress, respirations even & nonlabored. Call light within reach.
--- NOTE | 2018-11-19 15:00 | NUR ---
PT SITTING UP IN CHAIR. NO SIGNS OF ACUTE DISTRESS AT THIS TIME. WILL CONTINUE TO MONITOR FOR CHANGES IN CONDITION.
--- NOTE | 2018-11-19 15:07 | NUR ---
CALLED LYUDMILA RE[facility] [phone] NOTIFIED PT IS READY TO BE DISCHARGED , MEDICATION AND PAYMENT IS READY LYUDMILA WILL BE HERE WITH IN ONE HR TO [employer]CRETE PUDDLER THE PATIENT . NOTIFIED KELLI GEE.
--- NOTE | 2018-11-19 15:13 | NUR ---
11/19/18 RD FOLLOW UP COMPLETED PLEASE REFER TO NUTRITION ASSESSMENT UNDER CARE ACTIVITY FOR ESTIMATED NUTRITIONAL NEEDS. 1. CONTINUE REGULAR DIET 2. RD WILL FOLLOW UP WITHIN 5-7 DAYS; LOW RISK [address]IF[address]IO [address]
--- NOTE | 2018-11-19 15:50 | NUR ---
Received 1 bottle of Risperdal 1mg 500tabs & $1400 check from Nica (counseling case manager) to be given to Naveen Odom ([facility]). Pt aaox3, discharge instructions provided to pt, verbalized understanding & agree with POC. Pt tied her hair with gloves. Offered to fix her hair with proper hair ties. Pt refused & states she's "ok".
--- NOTE | 2018-11-19 16:10 | NUR ---
Naveen Odom from [facility] arrived to pick-up pt. Check & meds given to Naveen. Pt amb off unit with steady gait. All belongings with pt. Pt stable, no distress, left via private vehicle to [facility].
== END 2018-11-19 16:10 | DRG 463 ==
LOC: MED 19:32 → MTU 10-27 00:15 → EDBD 10-27 00:15 → MTU 11-02 16:30
PROVIDERS: ADMIT General Practice; ATTEND General Practice
DX: N39.0 Urinary tract infection, site not specified (principal); G93.41 Metabolic encephalopathy; F20.2 Catatonic schizophrenia; E87.8 Other disorders of electrolyte and fluid balance, not elsewhere classified; F94.0 Selective mutism; Z53.20 Procedure and treatment not carried out because of patient's decision for unspecified reasons; E02 Subclinical iodine-deficiency hypothyroidism; D64.9 Anemia, unspecified; Z78.1 Physical restraint status; Z59.0 Homelessness
CPT/HCPCS: 36415; 70450; 80048; 80053; 80305; 81001; 81025; 82140; 82150; 82550; 82607; 82728; 82746; 83036; 83540; 83605; 83690; 83735; 83880; 84100; 84439; 84443; 84484; 85025; 85045; 85610; 85730; 87081; 87086; 87186; 92610; 93005; 96365; 99285; C1758; G0480; G0482; J0696; J1644; J1956; J2001; J2060; J7030; J7060